=== PATIENT | female | born 1945 | race Caucasian/White ===

== ENCOUNTER 2017-01-04 04:17 | Emergency (ER) | payer MEDICARE ==
[2017-01-04] MEDS ORDERED: Adacel (T-DAP) 0.5 ML VIAL ONE (04:38)
[2017-01-04] MEDS ORDERED: Ondansetron ODT 4 MG TAB ONE (05:07)
--- NOTE | 2017-01-04 08:08 | CT ---
PRELIMINARY REPORT/[facility]/EMERGENCY AFTER HOURS PROCEDURE: EXAM: CT Head Without Intravenous Contrast CLINICAL HISTORY: 71 years old, female; Injury or trauma; Fall; Initial encounter; Bleeding / hemorrhage; Injury date: 01/04/17; Injury details: Patient fell when attempting to pull out a rolling chair. Patient denies loc. Minor lac to left roman catholic. Pt says she hit the corner of a marble top night stand. ; Patient HX: Blee ding from left occipital ridge TECHNIQUE: Axial computed tomography images of the head/brain without intravenous contrast. This CT exam was pe rformed using one or more of the following dose reduction techniques: automated exposure control, ad justment of the mA and/or kV according to patient size, and/or use of iterative reconstruction techn ique. Coronal and sagittal reformatted images were created and reviewed. COMPARISON: No relevant prior studies available. FINDINGS: Diffuse cerebral volume loss. Chronic small vessel disease. No intracranial hemorrhage. No mass, mass effect or midline shift. No hydrocephalus or extra-axial fluid collections. Ventricles, cortical sulci and basal cisterns are appropriate for age without effacement. Pepper-white matter differentiation is preserved. No dense MCA sign. Orbits are unremarkable. Paranasal sinuses are clear. Mastoid air cells are clear. No acute fracture. Extra calvarial soft tissues unremarkable. IMPRESSION: No acute intracranial abnormality. Thank you for allowing us to participate in the care of your patient. Dictated and Authenticated by: Vadim Herrera MD 01/04/2017 5:56 AM Central Time ([place] \T\ Rob) FINAL REPORT CT BRAIN WITHOUT CONTRAST: I agree with the preliminary report given by Dr. Vadim Herrera of [facility]. POS: [facility]
--- NOTE | 2017-01-04 08:09 | CT ---
PRELIMINARY REPORT/[facility]/EMERGENCY AFTER HOURS PROCEDURE: EXAM: CT Cervical Spine Without Intravenous Contrast CLINICAL HISTORY: 71 years old, female; Injury or trauma; Fall; Initial encounter; Blunt trauma; Injury date: 01/04/17 ; Patient HX: Patient fell when attempting to pull out a rolling chair. Patient denies loc. Pt hit t he back of her head on a marble top nightstand. Pt complains of neck pain. TECHNIQUE: Axial computed tomography images of the cervical spine without intravenous contrast. This CT exam wa s performed using one or more of the following dose reduction techniques: automated exposure control , adjustment of the mA and/or kV according to patient size, and/or use of iterative reconstruction t [facility]. Coronal and sagittal reformatted images were created and reviewed. COMPARISON: No relevant prior studies available. FINDINGS: Vertebrae: No acute fracture. Multilevel degenerative changes consisting of disk space height loss, endplate sclerosis and osteophytosis, uncovertebral hypertrophy and facet arthrosis. Discs/spinal canal/neural foramina: No high grade spinal canal stenosis. Soft tissues: Unremarkable. Lung apices: Unremarkable. IMPRESSION: No acute osseous abnormality. Thank you for allowing us to participate in the care of your patient. Dictated and Authenticated by: Vadim Herrera MD 01/04/2017 6:05 AM Central Time ([place] \T\ Rob) FINAL REPORT CT CERVICAL SPINE WITH CORONAL AND SAGITTAL REFORMATIONS: I agree with the preliminary report given by Dr. Vadim Herrera of [employer]. POS: [facility]
== END 2017-01-04 06:55 | disposition home or self-care (01) ==
LOC: NAV ERS 04:17
DX: S01.01XA Laceration without foreign body of scalp, initial encounter (principal); S13.4XXA Sprain of ligaments of cervical spine, initial encounter; M06.9 Rheumatoid arthritis, unspecified; I10 Essential (primary) hypertension; F32.9 Major depressive disorder, single episode, unspecified; W01.0XXA Fall on same level from slipping, tripping and stumbling without subsequent striking against object, initial encounter; Z79.899 Other long term (current) drug therapy; Y93.89 Activity, other specified; Z23 Encounter for immunization
CPT/HCPCS: 70450; 72125; 90471; 90715; Q0162

== ENCOUNTER 2017-01-29 10:45 | Emergency (ER) | payer MEDICARE ==
[2017-01-29] MEDS ORDERED: Sodium Chloride 0.9% 1,000 ML ONE (11:07)
== END 2017-01-29 12:30 | disposition home or self-care (01) ==
LOC: NAV ERS 10:45
DX: I95.2 Hypotension due to drugs (principal); T46.4X5A Adverse effect of angiotensin-converting-enzyme inhibitors, initial encounter; I10 Essential (primary) hypertension; F32.9 Major depressive disorder, single episode, unspecified; Z79.899 Other long term (current) drug therapy
CPT/HCPCS: 96360; J7050

== ENCOUNTER 2017-06-17 13:09 | Inpatient (IN) | payer MEDICARE ==
[2017-06-17] MEDS ORDERED: diphenhydrAMINE 25 MG CAP PO PRN (13:27)
[2017-06-17] MEDS ORDERED: Sodium Chloride 0.9% 10 ML ONE (13:38)
--- NOTE | 2017-06-17 13:48 | HP ---
DATE OF ADMISSION: 06/17/2017 CHIEF COMPLAINT: Status post knee replacement for physical therapy. BRIEF HISTORY: This is a very pleasant 71-year-old female who underwent elective right tot al knee replacement. She has done well and was deemed stable for therapy at [facility] and was transf erred here. Her main concern right now is pain. She denies any fever or chills. She denies any rigo st pain or shortness of breath. PAST MEDICAL HISTORY: 1. Hypertension. 2. Gastroesophageal reflux disease. 3. Degenerative joint disease. 4. Dyslipidemia. 5. Peripheral neuropathy. 6. Rheumatoid arthritis. ALLERGIES: To PENICILLIN. PAST SURGICAL HISTORY: Recent right total knee replacement. FAMILY HISTORY: Noncontributory to current admission. PSYCHOSOCIAL HISTORY: No documented tobacco, alcohol or IV drug abuse. REVIEW OF SYSTEMS: Cardiovascular: Denies any chest pain, shortness of breath, palpitations, paroxy smal nocturnal dyspnea, orthopnea, pedal edema. Respiratory: Denies any chronic cough, expectoratio n or pleuritic type chest pain. Gastrointestinal: Denies any nausea, vomiting, diarrhea, constipatio n, hematemesis, melena, hematochezia. She does have history of acid reflux. Genitourinary: Denies any frequency, urgency, dysuria or hematuria. Central nervous system: No focal numbness, weakness, or fainting spells, but does have generalized weakness. SHEENT: No difficulty with speech, vision, hearing or swallowing. PHYSICAL EXAMINATION: GENERAL: Very pleasant 71-year-old female who is in pain. Denies any other complaint. Delicia yates is alert, awake, and oriented x3. VITAL SIGNS: She is afebrile. Heart rate was 106, respiratory rate was 18, blood pressure was 175/8 5, but this was after she arrived here with no pain medicines. This morning, it was 138/78. HEENT: Normocephalic, atraumatic. Pupils equal and reactive to light and accommodation. Extraocula r muscles intact. NECK: No JVD, thyromegaly, cervical adenopathy, throat exudates or carotid bruits. CARDIOVASCULAR: S1, S2 plus, rate and rhythm regular. RESPIRATORY: Normal vesicular breath sounds heard in all lung leon. ABDOMEN: Soft, nontender, bowel sounds heard in all quadrants. EXTREMITIES: Without cyanosis or clubbing. Right knee incision with dressing. CENTRAL NERVOUS SYSTEM: Grossly nonfocal. LABORATORY VALUES: Pending. IMPRESSION: 1. Status post right total knee replacement. 2. Rheumatoid arthritis. 3. Hypertension. 4. Gastroesophageal reflux disease. 5. Peripheral neuropathy. PLAN: 1. Continue current medications. 2. Nutritional support. 3. Pain control. 4. Low sodium diet. 5. Deep venous thrombosis and stress ulcer prophylaxis. 6. Decubitus precautions. 7. Routine laboratory values. 8. Physical therapy. 9. Discussed with patient in detail and all questions answered.
[2017-06-17] MEDS: HYDROcodone/Acetaminophen 10/325 mg Tablet PO PRN ×2 (14:39→20:10)
[2017-06-17] MEDS: Gabapentin 300 MG CAP PO SCH ×2 (14:39→20:07)
[2017-06-17] MEDS: Simvastatin 10 MG TAB PO SCH (20:08)
[2017-06-17] MEDS: Cyclobenzaprine 10 MG TAB PO SCH (20:08)
[2017-06-17] MEDS: Naproxen 500 MG TAB PO PRN (20:08)
[2017-06-17] MEDS: Enoxaparin Sodium 40 MG/0.4 ML SYRINGE SC SCH (20:09)
[2017-06-17] MEDS: diphenhydrAMINE 25 MG CAP PO SCH (20:09)
[2017-06-18] MEDS: HYDROcodone/Acetaminophen 10/325 mg Tablet PO PRN ×5 (01:50→21:51)
[2017-06-18 06:03] LABS: #Basophils 0.1 thou/uL (0.0-0.2); #Eosinphils 0.5 thou/uL (0.0-0.7); #Lymphocytes 1.9 thou/uL (1.20-3.40); #Monocytes 0.8 thou/uL (0.11-0.59); #Neutrophils 3.7 thou/uL (1.40-6.50); %Basophils 1.3 % (0.0-1.0); %Eosinophils 6.7 % (0.0-10.0); %Lymphocytes 27.1 % (21.0-51.0); %Monocytes 11.7 % (0.0-10.0); %Neutrophils 53.1 % (42.0-75.0); Hemoglobin 10.1 g/dL (12.0-16.0); Mean Corpuscular HGB CONC 31.3 g/dL (32.0-36.0); Mean Corpuscular Volume 92.7 fl (81.0-99.0); Mean Platelet Volume 5.5 fL (7.4-10.4); Platelet Count 167 thou/uL (130-400); RBC Distribution Width 12.2 % (11.5-14.5); Red Blood Cell (RBC) Count 3.47 mill/uL (4.20-5.40)
[2017-06-18 06:17] LABS: Anion Gap 10 mmol/L (10-20); BUN (Urea Nitrogen) 9 mg/dL (9.8-20.1); Calc. Creatinine Clearance 129 mL/min (70-130); Carbon Dioxide 30 mmol/L (23-31); Chloride 104 mmol/L (98-107); Estimated GFR-MDRD 90; Potassium 3.9 mmol/L (3.5-5.1); Sodium 140 mmol/L (136-145)
[2017-06-18 06:18] LABS: Calcium 8.7 mg/dL (7.8-10.44); Glucose 108 mg/dL (83-110)
[2017-06-18] MEDS: Stress 600 With Zinc 1 TAB PO SCH (08:06)
[2017-06-18] MEDS: Vitami E (Dl,Tocopheryl Acet) 400 UNITS CAP PO SCH (08:06)
[2017-06-18] MEDS: Gabapentin 300 MG CAP PO SCH ×3 (08:07→21:52)
[2017-06-18] MEDS: Fish Oil 1,000 MG CAP PO SCH (08:07)
[2017-06-18] MEDS: Ubidecarenone 50 MG CAP PO SCH (08:07)
[2017-06-18] MEDS: Folic Acid 1 MG TAB PO SCH (08:07)
[2017-06-18] MEDS: Multivitamin W/ Minerals 1 TAB PO SCH (08:07)
[2017-06-18] MEDS: GARLIC 1000 MG PO SCH (10:56)
--- NOTE | 2017-06-18 12:58 | PRG ---
DATE OF SERVICE: 06/18/2017 SUBJECTIVE: Ms. Lujan is doing better, but feels like the [place] 10/325 is not lasting for 6 hours. She would like to have it every 4 hours at least for the first couple of days. No other concerns or questions. OBJECTIVE: VITAL SIGNS: She is afebrile, heart rate is 89, respirations 18, oxygen saturation 94%, blood pressu re is 135/77. CARDIOVASCULAR: S1, S2 plus. RESPIRATORY: Normal vesicular breath sounds. ABDOMEN: Soft, nontender, bowel sounds heard in all quadrants. EXTREMITIES: Without cyanosis or clubbing. Knee incision with dressing. LABORATORY VALUES: White count is 7.0, H&H is 10.1 and 32.1. Sodium 140, potassium 3.9, BUN and cre atinine is 9 and 0.65. IMPRESSION: 1. Status post knee replacement. 2. Hypertension, well controlled. 3. Gastroesophageal reflux disease. 4. Degenerative joint disease. 5. Dyslipidemia. 6. Peripheral neuropathy. 7. Rheumatoid arthritis. Her hypertension, it is managed by lifestyle and diet and the patient states that it really only flar es up when she is in pain. Usually it is very well controlled. PLAN: 1. Continue current medications. 2. Change [place] to q.4 hours. 3. DVT and stress ulcer prophylaxis. 4. Decubitus precautions. 5. Incision care. 6. Physical therapy. 7. Heart healthy diet.
[2017-06-18] MEDS: Naproxen 500 MG TAB PO PRN (15:04)
[2017-06-18] MEDS: diphenhydrAMINE 25 MG CAP PO SCH (21:52)
[2017-06-18] MEDS: Enoxaparin Sodium 40 MG/0.4 ML SYRINGE SC SCH (21:53)
[2017-06-18] MEDS: Simvastatin 10 MG TAB PO SCH (21:53)
[2017-06-18] MEDS: Cyclobenzaprine 10 MG TAB PO SCH (21:53)
[2017-06-18] MEDS ORDERED: Docusate 100 MG CAP PO SCH (22:15)
[2017-06-19] MEDS: HYDROcodone/Acetaminophen 10/325 mg Tablet PO PRN ×5 (02:45→19:33)
--- NOTE | 2017-06-19 09:21 | PRG ---
DATE OF SERVICE: 06/19/2017 SUBJECTIVE: Ms. Lujan is doing well. She is ambulating in the hallways with the help of a walker an d therapy. She states the pain is well controlled with hydrocodone every 4. She has been having jaky e issues with constipation and was started on a stool softener. She denies any other concerns or que stions. OBJECTIVE: VITAL SIGNS: She is afebrile, heart rate is 90, respirations 18, oxygen saturation is 91% on room ai r, blood pressure 134/60. CARDIOVASCULAR SYSTEM: S1, S2 plus. RESPIRATORY SYSTEM: Normal vesicular breath sounds. ABDOMEN: Soft, obese, nontender, bowel sounds heard in all quadrants. EXTREMITIES: Without cyanosis or clubbing. Trace edema, right leg. IMPRESSION: 1. Status post right total knee replacement. 2. Hypertension, well controlled. 3. Dyslipidemia. 4. Rheumatoid arthritis. 5. Degenerative joint disease. 6. Gastroesophageal reflux disease. PLAN: 1. Continue current medications. 2. Bowel regimen and stool softener. 3. Continue pain medications q.4. 4. Heart healthy diet. 5. DVT and stress ulcer prophylaxis. 6. Decubitus precautions. 7. Physical therapy.
[2017-06-19] MEDS: Docusate 100 MG CAP PO SCH ×2 (09:48→20:38)
[2017-06-19] MEDS: Stress 600 With Zinc 1 TAB PO SCH (09:48)
[2017-06-19] MEDS: Multivitamin W/ Minerals 1 TAB PO SCH (09:48)
[2017-06-19] MEDS: Ubidecarenone 50 MG CAP PO SCH (09:48)
[2017-06-19] MEDS: Gabapentin 300 MG CAP PO SCH ×3 (09:49→20:37)
[2017-06-19] MEDS: Fish Oil 1,000 MG CAP PO SCH (09:49)
[2017-06-19] MEDS: GARLIC 1000 MG PO SCH (09:50)
[2017-06-19] MEDS: Vitami E (Dl,Tocopheryl Acet) 400 UNITS CAP PO SCH (09:50)
[2017-06-19] MEDS: Folic Acid 1 MG TAB PO SCH (09:50)
[2017-06-19 13:49] VITALS: BMI 38.2
[2017-06-19] MEDS: diphenhydrAMINE 25 MG CAP PO SCH (20:37)
[2017-06-19] MEDS: Simvastatin 10 MG TAB PO SCH (20:37)
[2017-06-19] MEDS: Enoxaparin Sodium 40 MG/0.4 ML SYRINGE SC SCH (20:37)
[2017-06-19] MEDS: Cyclobenzaprine 10 MG TAB PO SCH (20:38)
[2017-06-20] MEDS: HYDROcodone/Acetaminophen 10/325 mg Tablet PO PRN ×6 (01:37→22:07)
[2017-06-20] MEDS: Ubidecarenone 50 MG CAP PO SCH (09:09)
[2017-06-20] MEDS: Gabapentin 300 MG CAP PO SCH ×3 (09:09→21:58)
[2017-06-20] MEDS: Naproxen 500 MG TAB PO PRN (09:09)
[2017-06-20] MEDS: Vitami E (Dl,Tocopheryl Acet) 400 UNITS CAP PO SCH (09:10)
[2017-06-20] MEDS: Folic Acid 1 MG TAB PO SCH (09:11)
[2017-06-20] MEDS: Fish Oil 1,000 MG CAP PO SCH (09:11)
[2017-06-20] MEDS: Docusate 100 MG CAP PO SCH ×2 (09:11→21:58)
[2017-06-20] MEDS: Stress 600 With Zinc 1 TAB PO SCH (09:11)
[2017-06-20] MEDS: Multivitamin W/ Minerals 1 TAB PO SCH (09:11)
[2017-06-20] MEDS: GARLIC 1000 MG PO SCH (09:12)
[2017-06-20] MEDS: Simvastatin 10 MG TAB PO SCH (21:58)
[2017-06-20] MEDS: Cyclobenzaprine 10 MG TAB PO SCH (21:58)
[2017-06-20] MEDS: diphenhydrAMINE 25 MG CAP PO SCH (21:58)
[2017-06-20] MEDS: Enoxaparin Sodium 40 MG/0.4 ML SYRINGE SC SCH (22:01)
--- NOTE | 2017-06-20 23:35 | PRG ---
DATE OF SERVICE: 06/20/2017 SUBJECTIVE: The patient feels well, cooperating well with therapy, walking in the stubbs, with adequat e pain relief. OBJECTIVE: Shows blood pressure 174/73, O2 sats 95%, respirations 22, pulse 104, afebrile. Laborato ry shows white count 7000, creatinine 0.65. Culture of the knee incision shows no organisms, no grow th. ASSESSMENT: Showed, 1. Resolving right total knee replacement. 2. Uncontrolled hypertension. 3. Rheumatoid arthritis. 4. Gastroesophageal reflux. PLAN: 1. Continue to monitor blood pressure. May need to increase medications for this tomorrow. 2. Continue pain relief and therapy. 3. Continue to stress ulcer and DVT prophylaxis.
[2017-06-21] MEDS: HYDROcodone/Acetaminophen 10/325 mg Tablet PO PRN ×6 (02:26→23:42)
[2017-06-21] MEDS: Stress 600 With Zinc 1 TAB PO SCH (08:55)
[2017-06-21] MEDS: Vitami E (Dl,Tocopheryl Acet) 400 UNITS CAP PO SCH (08:56)
[2017-06-21] MEDS: Naproxen 500 MG TAB PO PRN (08:56)
[2017-06-21] MEDS: Multivitamin W/ Minerals 1 TAB PO SCH (08:57)
[2017-06-21] MEDS: Ubidecarenone 50 MG CAP PO SCH (08:57)
[2017-06-21] MEDS: Docusate 100 MG CAP PO SCH ×2 (08:57→21:26)
[2017-06-21] MEDS: Gabapentin 300 MG CAP PO SCH ×3 (08:57→21:26)
[2017-06-21] MEDS: Folic Acid 1 MG TAB PO SCH (08:57)
[2017-06-21] MEDS: Fish Oil 1,000 MG CAP PO SCH (08:57)
[2017-06-21] MEDS: GARLIC 1000 MG PO SCH (08:58)
--- NOTE | 2017-06-21 20:14 | PRG ---
DATE OF SERVICE: 06/21/2017 SUBJECTIVE: The patient lying in bed, resting well. States she is feeling much better, decreasing k nee pain, has been walking in the halls. No headache, dizziness, shortness of breath. OBJECTIVE: VITAL SIGNS: Showed blood pressure is improved to 159/79, temperature is 98, pulse 90, O2 sat 93% on room air. LUNGS: Clear. CARDIAC EXAMINATION: Shows regular rhythm. EXTREMITIES: Right knee appears to be healing well. ASSESSMENT: Resolving right knee replacements, stable. Hypertension, improved to goal, stable. Deg enerative joint disease and rheumatoid arthritis. PLAN: Continue PT, OT. Continue pain medication. Continue DVT and stress ulcer prophylaxis.
[2017-06-21] MEDS: diphenhydrAMINE 25 MG CAP PO SCH (21:26)
[2017-06-21] MEDS: Enoxaparin Sodium 40 MG/0.4 ML SYRINGE SC SCH (21:27)
[2017-06-21] MEDS: Simvastatin 10 MG TAB PO SCH (21:27)
[2017-06-21] MEDS: Cyclobenzaprine 10 MG TAB PO SCH (21:28)
[2017-06-22] MEDS: HYDROcodone/Acetaminophen 10/325 mg Tablet PO PRN ×5 (03:47→21:05)
[2017-06-22] MEDS: Fish Oil 1,000 MG CAP PO SCH (07:53)
[2017-06-22] MEDS: Folic Acid 1 MG TAB PO SCH (07:56)
[2017-06-22] MEDS: Ubidecarenone 50 MG CAP PO SCH (07:56)
[2017-06-22] MEDS: Docusate 100 MG CAP PO SCH ×2 (07:56→21:04)
[2017-06-22] MEDS: Gabapentin 300 MG CAP PO SCH ×3 (07:56→21:04)
[2017-06-22] MEDS: Multivitamin W/ Minerals 1 TAB PO SCH (07:56)
[2017-06-22] MEDS: Stress 600 With Zinc 1 TAB PO SCH (07:56)
[2017-06-22] MEDS: GARLIC 1000 MG PO SCH (07:58)
[2017-06-22] MEDS ORDERED: Vitami E (Dl,Tocopheryl Acet) 400 UNITS CAP PO SCH (10:45)
[2017-06-22] MEDS: Vitami E (Dl,Tocopheryl Acet) 400 UNITS CAP PO SCH (10:48)
[2017-06-22] MEDS ORDERED: Magnesium Citrate 300 ML BOT PO SCH (13:00)
--- NOTE | 2017-06-22 18:02 | PRG ---
DATE OF SERVICE: 06/22/2017 SUBJECTIVE: Ms. Lujan is doing well except for constipation. She is tolerating therapy. She has be en deemed stable to go home tomorrow. She wants to take some mag citrate prior to going home. She a lso needs a prescription for hydrocodone which I will give her tomorrow. OBJECTIVE: VITAL SIGNS: She is afebrile, heart rate is 86, respirations 18, oxygen saturation 96%, blood pressu re is 169/73. CARDIOVASCULAR: S1, S2 plus. RESPIRATORY: Normal vesicular breath sounds. ABDOMEN: Soft, nontender, bowel sounds heard in all quadrants. EXTREMITIES: Without cyanosis or clubbing. Knee incision with dressing. IMPRESSION: 1. Constipation. 2. Gastroesophageal reflux disease. 3. Degenerative joint disease. 4. Dyslipidemia. 5. Peripheral neuropathy. PLAN: 1. Continue current medications. 2. Mag citrate. 3. High fiber diet. 4. DVT and stress ulcer prophylaxis. 5. Decubitus precautions. 6. Physical therapy. 7. Discharge planning.
[2017-06-22] MEDS: Cyclobenzaprine 10 MG TAB PO SCH (21:04)
[2017-06-22] MEDS: Simvastatin 10 MG TAB PO SCH (21:04)
[2017-06-22] MEDS: diphenhydrAMINE 25 MG CAP PO SCH (21:04)
[2017-06-22] MEDS: Enoxaparin Sodium 40 MG/0.4 ML SYRINGE SC SCH (21:05)
[2017-06-23] MEDS: HYDROcodone/Acetaminophen 10/325 mg Tablet PO PRN ×3 (01:11→10:12)
[2017-06-23] MEDS: Multivitamin W/ Minerals 1 TAB PO SCH (09:24)
[2017-06-23] MEDS: Ubidecarenone 50 MG CAP PO SCH (09:24)
[2017-06-23] MEDS: Fish Oil 1,000 MG CAP PO SCH (09:24)
[2017-06-23] MEDS: Folic Acid 1 MG TAB PO SCH (09:25)
[2017-06-23] MEDS: Docusate 100 MG CAP PO SCH (09:25)
[2017-06-23] MEDS: Stress 600 With Zinc 1 TAB PO SCH (09:25)
[2017-06-23] MEDS: Gabapentin 300 MG CAP PO SCH (09:25)
[2017-06-23] MEDS: Vitami E (Dl,Tocopheryl Acet) 400 UNITS CAP PO SCH (09:26)
[2017-06-23 10:27] VITALS: TEMP 97.9
[2017-06-23 12:05] VITALS: BP 150/66
--- NOTE | 2017-06-24 01:06 | DIS ---
DATE OF ADMISSION: 06/17/2017 DATE OF DISCHARGE: 06/23/2017 PRINCIPAL DIAGNOSES: 1. Right total knee replacement. 2. Gastroesophageal reflux disease. 3. Degenerative joint disease. 4. Dyslipidemia. 5. Peripheral neuropathy. 6. History of rheumatoid arthritis. COMPLICATIONS: None. ADVERSE REACTIONS: None. PROCEDURES: None. CONSULTATIONS: None. HOSPITAL COURSE: The patient was admitted as a transfer from [facility] for physical therap y after undergoing a right total knee replacement. She has done well and ambulating in the hallways and was deemed stable from therapy standpoint for discharge. She did have an episode of constipation , which resolved with magnesium citrate. She initially needed hydrocodone every 4 hours, but now she is taking it every 6 hours as needed, advised her to try to cut it down. She does have a followup a ppointment with her orthopedic surgeon on 06/30/2017. PHYSICAL EXAMINATION: VITAL SIGNS: On the day of discharge, she is afebrile, heart rate 88, respirations 20, oxygen satura tion 94% on room air, blood pressure is 150/66. CARDIOVASCULAR SYSTEM: S1, S2 plus. RESPIRATORY SYSTEM: Normal vesicular breath sounds. ABDOMEN: Soft, nontender, bowel sounds heard in all quadrants. EXTREMITIES: Without cyanosis or clubbing. Right knee incision with dressing. Trace edema. CENTRAL NERVOUS SYSTEM: Grossly nonfocal. DISCHARGE MEDICATIONS: 1. [place] 10/325 one q.6 hours p.r.n. 2. Flexeril 10 mg at night. 3. Vitamin D3 and CoQ10 as before. 4. Neurontin 600 mg t.i.d. 5. Protonix 40 mg daily. 6. Pravastatin 20 mg daily. 7. Fish oil 1000 mg daily. 8. Naproxen 440 mg b.i.d. p.r.n. DISCHARGE INSTRUCTIONS: She is to follow up with her primary care physician, Dr. Christianson. Heart heal thy diet. Incision care. Activity as tolerated. She is to call us with any questions or concerns. Discussed with patient in detail and all questions answered. I have sent in one week's supply of No r[place] 10/325, #28, [facility] from my office. Total time spent on this discharge is 35 minutes.
== END 2017-06-23 13:40 | disposition home or self-care (01) | DRG 561 ==
LOC: NAV ACUTE 13:09
PROVIDERS: ADMIT Internal Medicine; ATTEND Internal Medicine
DX: Z47.1 Aftercare following joint replacement surgery (principal); M05.50 Rheumatoid polyneuropathy with rheumatoid arthritis of unspecified site; I10 Essential (primary) hypertension; M19.90 Unspecified osteoarthritis, unspecified site; E78.5 Hyperlipidemia, unspecified; K21.9 Gastro-esophageal reflux disease without esophagitis; Z88.0 Allergy status to penicillin; Z96.651 Presence of right artificial knee joint; K59.00 Constipation, unspecified
CPT/HCPCS: 80048; 85025; 87070; 87205; A4216; J1650; J2270

== ENCOUNTER 2018-01-14 13:47 | Inpatient (IN) | payer MEDICARE ==
[2018-01-14] MEDS ORDERED: HYDROcodone/Acetaminophen 10/325 mg Tablet PO PRN ×2 (16:40)
[2018-01-14] MEDS ORDERED: Cyclobenzaprine 10 MG TAB PO SCH (16:45)
[2018-01-14] MEDS ORDERED: HYDROcodone/Acetaminophen 10/325 mg Tablet PO SCH (17:00)
[2018-01-14] MEDS: Gabapentin 300 MG CAP PO SCH (20:53)
[2018-01-14] MEDS: Aspirin 81 mg Enteric Coated Tablet PO SCH (20:53)
[2018-01-14] MEDS: Cyclobenzaprine 10 MG TAB PO SCH (20:53)
[2018-01-14] MEDS: Melatonin 3 MG TAB PO SCH (20:53)
[2018-01-14] MEDS: traZODone HCl 50 MG TAB PO SCH (20:53)
[2018-01-14] MEDS: Stress 600 With Zinc 1 TAB PO SCH (20:54)
[2018-01-14] MEDS: HYDROcodone/Acetaminophen 10/325 mg Tablet PO PRN (21:06)
--- NOTE | 2018-01-15 00:26 | HP ---
CHIEF COMPLAINT: Status post left total knee replacement for physical therapy. BRIEF HISTORY: This is a very pleasant overweight 72-year-old female who underwent left to adria knee replacement by Dr. Jay. She had an uneventful postoperative period and was felt to be a c andidate for inpatient rehabilitation and transferred her to halfway unit in [place]. Her m ain concern is her pain medications. She apparently was taking it every 4 hours there and on the dis charge summary, it stays every 8 hours. I advised her that I will change it to every 4 hours and we will just see how she does and taper it as she improves, she is pretty satisfied with that. She kianna es any other concerns or questions. She is having good bowel movements. PAST MEDICAL HISTORY: 1. Hypertension. 2. Gastroesophageal reflux disease. 3. Degenerative joint disease. 4. Dyslipidemia. 5. Peripheral neuropathy. 6. Rheumatoid arthritis. ALLERGIES: PENICILLIN. PAST SURGICAL HISTORY: Right total knee replacement. FAMILY HISTORY: Noncontributory to current admission. PSYCHOSOCIAL HISTORY: No documented tobacco, alcohol, or IV drug abuse. REVIEW OF SYSTEMS: Cardiovascular: She denies any chest pain, shortness of breath, palpitations, PN D, orthopnea, or pedal edema. Respiratory: Denies any chronic cough, expectoration or pleuritic-typ e chest pain. Gastrointestinal: Denies any nausea, vomiting, diarrhea, constipation, hematemesis, m patrick, or hematochezia. Genitourinary: Denies any frequency, urgency, dysuria, or hematuria. Centr al Nervous System: Generalized weakness. Extremities: Left knee pain. HEENT: No difficulty with speech, vision, hearing or swallowing. PHYSICAL EXAMINATION: GENERAL: A very pleasant 72-year-old overweight female who is resting comfortably in no ap parent distress. No family at bedside. She responds appropriately to questions. She is alert, awak e, and oriented x3. VITAL SIGNS: She is afebrile, heart rate 94, respirations 16, oxygen saturation is 92% on 2.5 liters of nasal cannula, blood pressure 137/81. HEENT: Normocephalic, atraumatic. Pupils equally reacting to light and accommodation. NECK: No JVD, thyromegaly, cervical adenopathy, or carotid bruits. CARDIOVASCULAR: S1, S2 plus rate and rhythm regular. RESPIRATORY: Normal vesicular breath sounds heard in all lung leon. ABDOMEN: Soft, obese, nontender, bowel sounds heard in all quadrants. EXTREMITIES: Without cyanosis or clubbing. Edema to left leg, left knee incision with dressing. Th ere is some warmth to the left knee, but no erythema. CENTRAL NERVOUS SYSTEM: Grossly nonfocal except for generalized weakness. LABORATORY VALUES: Done yesterday shows a white count of 9, H and H is 9.3 and 27.6. Sodium 134, po tassium 3.9, BUN and creatinine is 13 and 0.81. IMPRESSION: 1. Degenerative joint disease, status post left total knee replacement. 2. Hypertension. 3. Dyslipidemia. 4. Peripheral neuropathy. 5. History of rheumatoid arthritis. 6. Gastroesophageal reflux disease. 7. Anemia, likely due to acute blood loss. 8. Hyponatremia. PLAN: 1. Continue current medications. 2. Physical therapy and occupational therapy evaluate and treat. 3. DVT prophylaxis with PlexiPulse. She is a Worship. We will avoid Lovenox. 4. Stress ulcer prophylaxis. She is already on proton pump inhibitor. 5. Decubitus precautions. 6. Incision care. 7. Orthopedic precautions. 8. Heart-healthy diet. 9. Change pain medications back to her q.4 hours scheduled. 10. Recheck CBC and BMP in the morning. 11. Discussed with patient and nursing in detail and all questions answered. 12. She is already on a bowel regimen. 13. Anticipated length of stay 7-10 days.
[2018-01-15] MEDS: HYDROcodone/Acetaminophen 10/325 mg Tablet PO PRN ×5 (01:13→18:01)
[2018-01-15 05:38] LABS: Anion Gap 10 mmol/L (10-20); BUN (Urea Nitrogen) 9 mg/dL (9.8-20.1); Calc. Creatinine Clearance 131 mL/min (70-130); Calcium 8.7 mg/dL (7.8-10.44); Carbon Dioxide 31 mmol/L (23-31); Chloride 101 mmol/L (98-107); Estimated GFR-MDRD 89; Glucose 100 mg/dL (83-110); Sodium 138 mmol/L (136-145)
[2018-01-15 05:51] LABS: #Basophils 0.1 thou/uL (0.0-0.2); #Eosinphils 1.4 thou/uL (0.0-0.7); #Lymphocytes 1.7 thou/uL (1.20-3.40); #Monocytes 0.7 thou/uL (0.11-0.59); #Neutrophils 4.8 thou/uL (1.40-6.50); %Basophils 1.1 % (0.0-1.0); %Eosinophils 16.3 % (0.0-10.0); %Lymphocytes 19.8 % (21.0-51.0); %Monocytes 7.7 % (0.0-10.0); %Neutrophils 55.1 % (42.0-75.0); Hemoglobin 9.2 g/dL (12.0-16.0); Mean Corpuscular Hemoglobin 28.3 pg (27.0-31.0); Mean Corpuscular Volume 88.5 fl (81.0-99.0); Mean Platelet Volume 5.4 fL (7.4-10.4); Platelet Count 194 thou/uL (130-400); RBC Distribution Width 12.6 % (11.5-14.5); Red Blood Cell (RBC) Count 3.24 mill/uL (4.20-5.40); White Blood Cell (WBC) Count 8.6 thou/uL (4.8-10.8)
[2018-01-15] MEDS: Escitalopram Oxalate 10 mg Tablet PO SCH (08:21)
[2018-01-15] MEDS: Gabapentin 300 MG CAP PO SCH ×3 (08:21→21:08)
[2018-01-15] MEDS: Folic Acid 1 MG TAB PO SCH (08:21)
[2018-01-15] MEDS: Multivitamin W/ Minerals 1 TAB PO SCH (08:21)
[2018-01-15] MEDS: Cyclobenzaprine 10 MG TAB PO SCH ×3 (08:21→21:08)
[2018-01-15] MEDS: Aspirin 81 mg Enteric Coated Tablet PO SCH ×2 (08:21→21:08)
[2018-01-15] MEDS: Fish Oil 1,000 MG CAP PO SCH (08:21)
[2018-01-15] MEDS: Pravastatin Sodium 20 MG TAB PO SCH (08:22)
[2018-01-15] MEDS: IRON CARB PO SCH (08:24)
[2018-01-15] MEDS: GARLIC 1000 MG PO SCH (08:24)
[2018-01-15] MEDS: FOLIC PO SCH (08:24)
[2018-01-15] MEDS: VIT C PO SCH (08:24)
[2018-01-15] MEDS: VIT B12 PO SCH (08:24)
--- NOTE | 2018-01-15 09:43 | PRG ---
DATE OF SERVICE: 01/15/2018 SUBJECTIVE: Ms. Lujan is doing well. She apparently tried to walk by herself using a walker. Did n ot fall. Reinforced the need for her to call for assistance. She did sleep. Pain is controlled. S he apparently was recently given a prescription for thyroid medication. She is not sure what the dos age is. I advised her to bring it in and we will review it. OBJECTIVE: VITAL SIGNS: She is afebrile, heart rate is 89, respirations 18, oxygen saturation 95% on room air, blood pressure 134/63. HEENT: Normocephalic, atraumatic. CARDIOVASCULAR SYSTEM: S1 and S2 plus. RESPIRATORY SYSTEM: Normal vesicular breath sounds. ABDOMEN: Soft, obese, nontender. Bowel sounds heard in all quadrants. EXTREMITIES: Without cyanosis or clubbing. Left leg with edema. Left knee incision with dressing. No erythema, but there is warmth and swelling. LABORATORY VALUES: H and H is 9.2 and 28.6. Sodium 138, potassium 4.0, BUN and creatinine is 9 and 0.65. IMPRESSION: 1. Degenerative joint disease, status post left total knee replacement. 2. Peripheral neuropathy. 3. Hypertension. 4. Dyslipidemia. 5. Gastroesophageal reflux disease. 6. History of rheumatoid arthritis. PLAN: 1. Continue current medications. 2. Incision care. 3. Deep venous thrombosis prophylaxis with PlexiPulses. 4. Decubitus precautions. 5. Stress ulcer prophylaxis. 6. Continue PT/OT evaluation and treatment. 7. She is to call us with any questions or concerns. 8. Nutritional support. 9. Discussed with patient in detail. All questions answered. 10. We will check old records to get the results on her thyroid laboratory values and see if she ronal lly needs to be on thyroid medication. Her TSH was borderline at 5.6396. I do not see any T3 or T4.
[2018-01-15] MEDS: Ubidecarenone 50 MG CAP PO SCH (09:44)
[2018-01-15] MEDS: Vitami E (Dl,Tocopheryl Acet) 400 UNITS CAP PO SCH (09:44)
[2018-01-15 18:40] LABS: Free T4 (Free Thyroxine) 1.1 ng/dL (0.70-1.48)
[2018-01-15] MEDS: traZODone HCl 50 MG TAB PO SCH (21:08)
[2018-01-15] MEDS: Melatonin 3 MG TAB PO SCH (21:08)
[2018-01-15] MEDS: Stress 600 With Zinc 1 TAB PO SCH (21:08)
[2018-01-16] MEDS: HYDROcodone/Acetaminophen 10/325 mg Tablet PO PRN ×6 (00:21→23:59)
[2018-01-16] MEDS: Levothyroxine Sodium 25 MCG TAB PO SCH (05:02)
[2018-01-16] MEDS: Folic Acid 1 MG TAB PO SCH (08:46)
[2018-01-16] MEDS: Cyclobenzaprine 10 MG TAB PO SCH ×3 (08:47→20:04)
[2018-01-16] MEDS: Vitami E (Dl,Tocopheryl Acet) 400 UNITS CAP PO SCH (08:47)
[2018-01-16] MEDS: Pravastatin Sodium 20 MG TAB PO SCH (08:47)
[2018-01-16] MEDS: Aspirin 81 mg Enteric Coated Tablet PO SCH ×2 (08:47→20:04)
[2018-01-16] MEDS: Gabapentin 300 MG CAP PO SCH ×3 (08:48→20:03)
[2018-01-16] MEDS: Multivitamin W/ Minerals 1 TAB PO SCH (08:49)
[2018-01-16] MEDS: Escitalopram Oxalate 10 mg Tablet PO SCH (08:49)
[2018-01-16] MEDS: Ubidecarenone 50 MG CAP PO SCH (08:49)
[2018-01-16] MEDS: Fish Oil 1,000 MG CAP PO SCH (08:49)
[2018-01-16] MEDS: GARLIC 1000 MG PO SCH (08:55)
[2018-01-16] MEDS: IRON CARB PO SCH (10:21)
[2018-01-16] MEDS: FOLIC PO SCH (10:21)
[2018-01-16] MEDS: VIT B12 PO SCH (10:21)
[2018-01-16] MEDS: VIT C PO SCH (10:21)
[2018-01-16] MEDS: Melatonin 3 MG TAB PO SCH (20:04)
[2018-01-16] MEDS: traZODone HCl 50 MG TAB PO SCH (20:04)
[2018-01-16] MEDS: Stress 600 With Zinc 1 TAB PO SCH (20:04)
--- NOTE | 2018-01-16 22:28 | PRG ---
DATE OF SERVICE: 01/16/2018 SUBJECTIVE: Patient is a 72-year-old white female, status post recent left total knee replacement, w ho was doing well with decreasing swelling and tenderness and pain, cooperating well with therapy. OBJECTIVE: VITAL SIGNS: Shows temperature is 97.4, pulse 94, respirations 18, O2 sats 92% on room air, blood pr essure 148/64. LUNGS: Clear. CARDIAC: Shows regular rhythm. ABDOMEN: Soft and nontender. ASSESSMENT: 1. Resolving left total knee replacement. 2. Stable peripheral neuropathy. 3. Stable hypertension. PLAN: Continue PT, OT. Start Senokot at patient's request for constipation. Continue stress ulcer and DVT prophylaxis.
[2018-01-16] MEDS: Senokot S 8.6-50 MG TAB PO PRN (23:59)
[2018-01-17] MEDS: Levothyroxine Sodium 25 MCG TAB PO SCH (05:56)
[2018-01-17] MEDS: HYDROcodone/Acetaminophen 10/325 mg Tablet PO PRN ×5 (05:57→23:37)
[2018-01-17] MEDS: Fish Oil 1,000 MG CAP PO SCH (09:00)
[2018-01-17] MEDS: Vitami E (Dl,Tocopheryl Acet) 400 UNITS CAP PO SCH (09:01)
[2018-01-17] MEDS: Aspirin 81 mg Enteric Coated Tablet PO SCH ×2 (09:01→20:48)
[2018-01-17] MEDS: Folic Acid 1 MG TAB PO SCH (09:01)
[2018-01-17] MEDS: Ubidecarenone 50 MG CAP PO SCH (09:01)
[2018-01-17] MEDS: Pravastatin Sodium 20 MG TAB PO SCH (09:02)
[2018-01-17] MEDS: Multivitamin W/ Minerals 1 TAB PO SCH (09:02)
[2018-01-17] MEDS: Gabapentin 300 MG CAP PO SCH ×3 (09:04→20:47)
[2018-01-17] MEDS: Cyclobenzaprine 10 MG TAB PO SCH ×3 (09:04→20:48)
[2018-01-17] MEDS: Escitalopram Oxalate 10 mg Tablet PO SCH (09:05)
[2018-01-17] MEDS: GARLIC 1000 MG PO SCH (09:06)
[2018-01-17] MEDS: VIT B12 PO SCH (09:07)
[2018-01-17] MEDS: FOLIC PO SCH (09:07)
[2018-01-17] MEDS: VIT C PO SCH (09:07)
[2018-01-17] MEDS: IRON CARB PO SCH (09:07)
[2018-01-17] MEDS: Senokot S 8.6-50 MG TAB PO PRN (19:38)
--- NOTE | 2018-01-17 19:43 | PRG ---
DATE OF SERVICE: 01/17/2018 SUBJECTIVE: The patient feels better, up in the wheelchair, ambulating, moving her left knee still u nable to extend 180 degrees, but is ambulating with a wheelchair with no difficulty and transferring. OBJECTIVE: VITAL SIGNS: Temperature is 98, pulse 91, respirations 18, O2 sats 92% on room air, blood pressure 1 44/65. LUNGS: Clear. CARDIAC: Shows regular rhythm. EXTREMITIES: Left leg shows healing anterior incision. Her left total knee with decreasing swelling and minimal erythema. ASSESSMENT: 1. Resolving left total knee replacement. 2. Stable peripheral neuropathy. 3. Stable hypertension. 4. Chronic constipation. PLAN: 1. Continue stress ulcer and DVT prophylaxis. 2. Continue pain relief per Dr. Mckinnon. 3. Continue PT and OT. 4. Continue Senokot as needed for constipation.
[2018-01-17] MEDS: Melatonin 3 MG TAB PO SCH (20:48)
[2018-01-17] MEDS: traZODone HCl 50 MG TAB PO SCH (20:48)
[2018-01-17] MEDS: Stress 600 With Zinc 1 TAB PO SCH (20:48)
[2018-01-18] MEDS: HYDROcodone/Acetaminophen 10/325 mg Tablet PO PRN ×5 (05:05→21:34)
[2018-01-18] MEDS: Levothyroxine Sodium 25 MCG TAB PO SCH (05:05)
[2018-01-18] MEDS: Escitalopram Oxalate 10 mg Tablet PO SCH (09:07)
[2018-01-18] MEDS: Cyclobenzaprine 10 MG TAB PO SCH ×3 (09:07→20:46)
[2018-01-18] MEDS: Aspirin 81 mg Enteric Coated Tablet PO SCH ×2 (09:07→20:46)
[2018-01-18] MEDS: Fish Oil 1,000 MG CAP PO SCH (09:07)
[2018-01-18] MEDS: Multivitamin W/ Minerals 1 TAB PO SCH (09:08)
[2018-01-18] MEDS: Folic Acid 1 MG TAB PO SCH (09:08)
[2018-01-18] MEDS: VIT B12 PO SCH (09:08)
[2018-01-18] MEDS: FOLIC PO SCH (09:08)
[2018-01-18] MEDS: Gabapentin 300 MG CAP PO SCH ×3 (09:08→20:46)
[2018-01-18] MEDS: IRON CARB PO SCH (09:08)
[2018-01-18] MEDS: VIT C PO SCH (09:08)
[2018-01-18] MEDS: GARLIC 1000 MG PO SCH (09:09)
[2018-01-18] MEDS: Pravastatin Sodium 20 MG TAB PO SCH (09:10)
[2018-01-18] MEDS: Ubidecarenone 50 MG CAP PO SCH (09:10)
[2018-01-18] MEDS: Vitami E (Dl,Tocopheryl Acet) 400 UNITS CAP PO SCH (09:11)
[2018-01-18] MEDS ORDERED: Sodium Chloride 0.9% 0 ML ONE (09:58)
--- NOTE | 2018-01-18 13:29 | PRG ---
DATE OF SERVICE: 01/18/2018 SUBJECTIVE: Ms. Lujan is doing well. Denies any complaints, resting comfortably. Pain medicines ar e helping. Tolerating her therapy. No family at bedside, discussed with nursing. OBJECTIVE: VITAL SIGNS: She is afebrile, heart rate 83, respirations 18, oxygen saturation 94% on room air, blo od pressure 136/62. CARDIOVASCULAR: S1, S2 plus. RESPIRATORY SYSTEM: Normal vesicular breath sounds. ABDOMEN: Soft, obese, nontender. Bowel sounds heard in all quadrants. EXTREMITIES: Without cyanosis or clubbing. Trace edema left leg, left knee incision with dressing. CENTRAL NERVOUS SYSTEM: Improving deconditioning. IMPRESSION: 1. Degenerative joint disease, status post left total knee replacement. 2. Hypertension. 3. Gastroesophageal reflux disease. 4. Degenerative joint disease. 5. Dyslipidemia. 6. Peripheral neuropathy. 7. History of rheumatoid arthritis. 8. Mildly elevated TSH, but normal T3 and T4. PLAN: 1. I advised the patient that I would not recommend her taking any thyroid supplementation at this t nicolle. 2. Continue incision care. 3. Nutritional support. 4. DVT and stress ulcer prophylaxis. 5. Decubitus precautions. 6. Physical therapy. 7. Routine laboratory values. 8. Discussed with patient in detail. All questions answered.
[2018-01-18] MEDS ORDERED: guaiFENesin ER 600 MG TAB PO PRN (13:50)
[2018-01-18] MEDS: Senokot S 8.6-50 MG TAB PO PRN (17:30)
[2018-01-18] MEDS: traZODone HCl 50 MG TAB PO SCH (20:46)
[2018-01-18] MEDS: Stress 600 With Zinc 1 TAB PO SCH (20:46)
[2018-01-18] MEDS: Melatonin 3 MG TAB PO SCH (20:46)
[2018-01-19] MEDS: HYDROcodone/Acetaminophen 10/325 mg Tablet PO PRN ×6 (01:48→23:22)
[2018-01-19] MEDS: Levothyroxine Sodium 25 MCG TAB PO SCH (05:57)
[2018-01-19] MEDS: Aspirin 81 mg Enteric Coated Tablet PO SCH ×2 (08:24→20:56)
[2018-01-19] MEDS: Escitalopram Oxalate 10 mg Tablet PO SCH (08:25)
[2018-01-19] MEDS: Fish Oil 1,000 MG CAP PO SCH (08:25)
[2018-01-19] MEDS: Folic Acid 1 MG TAB PO SCH (08:25)
[2018-01-19] MEDS: Multivitamin W/ Minerals 1 TAB PO SCH (08:25)
[2018-01-19] MEDS: Gabapentin 300 MG CAP PO SCH ×3 (08:25→20:54)
[2018-01-19] MEDS: Cyclobenzaprine 10 MG TAB PO SCH ×3 (08:25→20:54)
[2018-01-19] MEDS: IRON CARB PO SCH (08:26)
[2018-01-19] MEDS: FOLIC PO SCH (08:26)
[2018-01-19] MEDS: GARLIC 1000 MG PO SCH (08:26)
[2018-01-19] MEDS: VIT B12 PO SCH (08:26)
[2018-01-19] MEDS: VIT C PO SCH (08:26)
[2018-01-19] MEDS: Pravastatin Sodium 20 MG TAB PO SCH (08:27)
[2018-01-19] MEDS: Ubidecarenone 50 MG CAP PO SCH (08:27)
[2018-01-19] MEDS: Vitami E (Dl,Tocopheryl Acet) 400 UNITS CAP PO SCH (08:27)
--- NOTE | 2018-01-19 13:36 | PRG ---
DATE OF SERVICE: 01/19/2018 SUBJECTIVE: Ms. Lujan is doing well except she states that she cannot tolerate the Mucinex. She sti ll has a dry cough. Pain is improving. Tolerating therapy. No family at bedside, discussed with alejandro haas. OBJECTIVE: VITAL SIGNS: She is afebrile, heart rate 98, respirations 18, oxygen saturation 96% on room air, blo od pressure 108/68. CARDIOVASCULAR: S1, S2 plus. RESPIRATORY SYSTEM: Normal vesicular breath sounds. ABDOMEN: Soft, obese, nontender. Bowel sounds heard in all quadrants. EXTREMITIES: Without cyanosis or clubbing. Left knee incision with dressing. Minimal drainage from the inferior aspect of it. We will ask nurses to change it. IMPRESSION: 1. Dry cough, possible allergies versus the dry air. We will discontinue Mucinex and start her on T essalon Perles. 2. Status post left total knee replacement. 3. Obesity. 4. Hypertension. 5. Gastroesophageal reflux disease. 6. Dyslipidemia. 7. Peripheral neuropathy. PLAN: 1. Tessalon Perles 100 mg t.i.d. p.r.n. 2. Heart healthy diet. 3. DVT and stress ulcer prophylaxis. 4. Decubitus precautions. 5. Physical therapy. 6. Routine laboratory values. 7. I discussed with the patient in detail and all questions answered.
[2018-01-19] MEDS: Benzonatate 100 MG CAP PO PRN (20:53)
[2018-01-19] MEDS: Stress 600 With Zinc 1 TAB PO SCH (20:54)
[2018-01-19] MEDS: traZODone HCl 50 MG TAB PO SCH (20:54)
[2018-01-19] MEDS: Melatonin 3 MG TAB PO SCH (20:54)
[2018-01-20] MEDS: HYDROcodone/Acetaminophen 10/325 mg Tablet PO PRN ×5 (03:32→20:18)
[2018-01-20] MEDS: Levothyroxine Sodium 25 MCG TAB PO SCH (05:01)
[2018-01-20] MEDS: Gabapentin 300 MG CAP PO SCH ×3 (07:51→20:17)
[2018-01-20] MEDS: Cyclobenzaprine 10 MG TAB PO SCH ×3 (07:51→20:17)
[2018-01-20] MEDS: Aspirin 81 mg Enteric Coated Tablet PO SCH ×2 (07:51→20:17)
[2018-01-20] MEDS: Pravastatin Sodium 20 MG TAB PO SCH (07:51)
[2018-01-20] MEDS: FOLIC PO SCH (07:53)
[2018-01-20] MEDS: Folic Acid 1 MG TAB PO SCH (07:53)
[2018-01-20] MEDS: VIT C PO SCH (07:53)
[2018-01-20] MEDS: Multivitamin W/ Minerals 1 TAB PO SCH (07:53)
[2018-01-20] MEDS: IRON CARB PO SCH (07:53)
[2018-01-20] MEDS: Escitalopram Oxalate 10 mg Tablet PO SCH (07:53)
[2018-01-20] MEDS: Vitami E (Dl,Tocopheryl Acet) 400 UNITS CAP PO SCH (07:53)
[2018-01-20] MEDS: VIT B12 PO SCH (07:53)
[2018-01-20] MEDS: Ubidecarenone 50 MG CAP PO SCH (07:53)
[2018-01-20] MEDS: Fish Oil 1,000 MG CAP PO SCH (07:53)
[2018-01-20] MEDS: GARLIC 1000 MG PO SCH (07:54)
--- NOTE | 2018-01-20 13:39 | PRG ---
DATE OF SERVICE: 01/20/2018 SUBJECTIVE: Ms. Lujan is doing well. She is up in her wheelchair. Her cough is much improved. She still has pain in her left knee, but it is controlled with pain medications. No family at bedside, discussed with nursing. OBJECTIVE: VITAL SIGNS: She is afebrile, heart rate 93, respirations 18. Oxygen saturation documented at 85% o n room air. This is from 8:00 this morning. I had them recheck it and it was 96%, blood pressure 13 2/60. CARDIOVASCULAR: S1, S2 plus. RESPIRATORY SYSTEM: Normal vesicular breath sounds. ABDOMEN: Soft, nontender, obese. Bowel sounds heard in all quadrants. EXTREMITIES: Without cyanosis or clubbing, 1+ edema to left leg, left knee incision with dressing. CENTRAL NERVOUS SYSTEM: Generalized weakness. IMPRESSION: 1. Left knee degenerative joint disease status post total knee replacement. 2. Improving cough. 3. Mild elevated TSH. 4. Dyslipidemia. 5. Peripheral neuropathy. 6. Depression. PLAN: 1. Continue current medications. 2. Nutritional support. 3. DVT and stress ulcer prophylaxis. 4. Decubitus precautions. 5. Routine laboratory values.
[2018-01-20 14:14] VITALS: BMI 39.3
[2018-01-20] MEDS: Stress 600 With Zinc 1 TAB PO SCH (20:18)
[2018-01-20] MEDS: Melatonin 3 MG TAB PO SCH (20:18)
[2018-01-20] MEDS: traZODone HCl 50 MG TAB PO SCH (20:18)
[2018-01-20] MEDS: Benzonatate 100 MG CAP PO PRN (20:26)
[2018-01-20] MEDS: Senokot S 8.6-50 MG TAB PO PRN (20:26)
[2018-01-21] MEDS: HYDROcodone/Acetaminophen 10/325 mg Tablet PO PRN ×5 (01:59→21:28)
[2018-01-21 05:20] LABS: Hemoglobin 9.6 g/dL (12.0-16.0); Mean Corpuscular HGB CONC 31.4 g/dL (32.0-36.0); Mean Corpuscular Hemoglobin 28.4 pg (27.0-31.0); Mean Corpuscular Volume 90.5 fL (78.0-98.0); Platelet Count 239 thou/uL (130-400); RBC Distribution Width 13.9 % (11.5-14.5); Red Blood Cell (RBC) Count 3.39 mill/uL (4.20-5.40); White Blood Cell (WBC) Count 7.8 thou/uL (4.8-10.8)
[2018-01-21 05:21] LABS: #Basophils 0.1 thou/uL (0.0-0.2); #Eosinphils 1.2 thou/uL (0.0-0.7); #Lymphocytes 1.9 thou/uL (1.20-3.40); #Monocytes 0.7 thou/uL (0.11-0.59); %Basophils 1.2 % (0.0-1.0); %Eosinophils 15.1 % (0.0-10.0); %Lymphocytes 24.4 % (21.0-51.0); %Monocytes 8.8 % (0.0-10.0); %Neutrophils 50.4 % (42.0-75.0); Mean Platelet Volume 4.9 fL (7.4-10.4)
[2018-01-21 05:22] LABS: MDiff Complete? YES; Manual Diff?? NO
[2018-01-21 05:30] LABS: Anion Gap 11 mmol/L (10-20); BUN (Urea Nitrogen) 10 mg/dL (9.8-20.1); Calc. Creatinine Clearance 125 mL/min (70-130); Calcium 9.3 mg/dL (7.8-10.44); Carbon Dioxide 33 mmol/L (23-31); Chloride 100 mmol/L (98-107); Estimated GFR-MDRD 85; Glucose 103 mg/dL (83-110); Potassium 4.6 mmol/L (3.5-5.1); Sodium 139 mmol/L (136-145)
[2018-01-21] MEDS: Levothyroxine Sodium 25 MCG TAB PO SCH (06:15)
[2018-01-21] MEDS: Benzonatate 100 MG CAP PO PRN ×2 (06:16→17:15)
[2018-01-21] MEDS: Aspirin 81 mg Enteric Coated Tablet PO SCH ×2 (08:33→21:27)
[2018-01-21] MEDS: Fish Oil 1,000 MG CAP PO SCH (08:39)
[2018-01-21] MEDS: Escitalopram Oxalate 10 mg Tablet PO SCH (08:39)
[2018-01-21] MEDS: Folic Acid 1 MG TAB PO SCH (08:40)
[2018-01-21] MEDS: Gabapentin 300 MG CAP PO SCH ×3 (08:40→21:27)
[2018-01-21] MEDS: Multivitamin W/ Minerals 1 TAB PO SCH (08:41)
[2018-01-21] MEDS: Ubidecarenone 50 MG CAP PO SCH (08:45)
[2018-01-21] MEDS: Pravastatin Sodium 20 MG TAB PO SCH (08:48)
[2018-01-21] MEDS: Vitami E (Dl,Tocopheryl Acet) 400 UNITS CAP PO SCH (08:49)
[2018-01-21] MEDS: Cyclobenzaprine 10 MG TAB PO SCH ×3 (08:52→21:27)
[2018-01-21] MEDS: VIT C PO SCH (08:56)
[2018-01-21] MEDS: VIT B12 PO SCH (08:56)
[2018-01-21] MEDS: IRON CARB PO SCH (08:56)
[2018-01-21] MEDS: FOLIC PO SCH (08:56)
[2018-01-21] MEDS: GARLIC 1000 MG PO SCH (08:56)
--- NOTE | 2018-01-21 13:07 | PRG ---
DATE OF SERVICE: 01/21/2018 SUBJECTIVE: Ms. Lujan is doing well, tolerating therapy, trying to cut down on her pain medications. Denies any concerns or questions. She does have a followup appointment with Ortho next Thursday per patient. No family at bedside. OBJECTIVE: VITAL SIGNS: She is afebrile, heart rate 88, respirations 18, oxygen saturation 97% on room air, blo od pressure 138/62. CARDIOVASCULAR SYSTEM: S1 and S2 plus. RESPIRATORY SYSTEM: Normal vesicular breath sounds. ABDOMEN: Soft, nontender, bowel sounds heard in all quadrants, obese. EXTREMITIES: Without cyanosis or clubbing. Left knee incision with dressing. Improving left leg ed robert. CENTRAL NERVOUS SYSTEM: Improving deconditioning. LABORATORY VALUES: White count is 7.8, H and H is 9.6 and 30.7. Sodium 139, potassium 4.6, BUN and creatinine is 10 and 0.68. IMPRESSION: 1. Degenerative joint disease, status post left total knee replacement. 2. Mild hypothyroidism. 3. History of rheumatoid arthritis. 4. Peripheral neuropathy. 5. Resolved cough. 6. Depression. 7. Dyslipidemia. PLAN: 1. Continue current medications. 2. Incision care. 3. Heart healthy diet. 4. DVT and stress ulcer prophylaxis. 5. Decubitus precautions. 6. Routine laboratory values. 7. Physical therapy. 8. I discussed with the patient and nursing in detail. All questions answered.
[2018-01-21] MEDS: Stress 600 With Zinc 1 TAB PO SCH (21:28)
[2018-01-21] MEDS: Melatonin 3 MG TAB PO SCH (21:28)
[2018-01-21] MEDS: Senokot S 8.6-50 MG TAB PO PRN (21:28)
[2018-01-21] MEDS: traZODone HCl 50 MG TAB PO SCH (21:28)
[2018-01-21 22:06] LABS: Bilirubin Negative (Negative); Blood, Urine Large (Negative); Clarity Clear (Clear); Glucose, Urine (Dipstick) Negative (Negative); Leukocyte Negative (Negative); Nitrite Negative (Negative); Protein, Urine (Dipstick) Negative (Neg-Trace); Specific Gravity, Urine 1.015 (1.005-1.030); pH, Urine 7.5 (5.0-9.0)
[2018-01-22] MEDS: Levothyroxine Sodium 25 MCG TAB PO SCH (05:17)
[2018-01-22] MEDS: HYDROcodone/Acetaminophen 10/325 mg Tablet PO PRN ×3 (05:17→20:00)
[2018-01-22] MEDS: Naproxen 500 MG TAB PO SCH ×3 (08:28→19:59)
[2018-01-22] MEDS: Pravastatin Sodium 20 MG TAB PO SCH (08:28)
[2018-01-22] MEDS: Folic Acid 1 MG TAB PO SCH (08:31)
[2018-01-22] MEDS: Gabapentin 300 MG CAP PO SCH ×3 (08:31→19:58)
[2018-01-22] MEDS: Escitalopram Oxalate 10 mg Tablet PO SCH (08:31)
[2018-01-22] MEDS: Multivitamin W/ Minerals 1 TAB PO SCH (08:32)
[2018-01-22] MEDS: Fish Oil 1,000 MG CAP PO SCH (08:32)
[2018-01-22] MEDS: Aspirin 81 mg Enteric Coated Tablet PO SCH ×2 (08:32→19:58)
[2018-01-22] MEDS: GARLIC 1000 MG PO SCH (08:34)
[2018-01-22] MEDS: Vitami E (Dl,Tocopheryl Acet) 400 UNITS CAP PO SCH (08:37)
[2018-01-22] MEDS: Ubidecarenone 50 MG CAP PO SCH (08:38)
[2018-01-22] MEDS: VIT B12 PO SCH (08:47)
[2018-01-22] MEDS: IRON CARB PO SCH (08:47)
[2018-01-22] MEDS: VIT C PO SCH (08:47)
[2018-01-22] MEDS: FOLIC PO SCH (08:47)
[2018-01-22] MEDS: Cyclobenzaprine 10 MG TAB PO SCH ×3 (10:52→19:58)
[2018-01-22] MEDS: Stress 600 With Zinc 1 TAB PO SCH (19:59)
[2018-01-22] MEDS: Benzonatate 100 MG CAP PO PRN (19:59)
[2018-01-22] MEDS: Melatonin 3 MG TAB PO SCH (19:59)
[2018-01-22] MEDS: traZODone HCl 50 MG TAB PO SCH (19:59)
[2018-01-22] MEDS: Senokot S 8.6-50 MG TAB PO PRN (19:59)
[2018-01-23] MEDS: Levothyroxine Sodium 25 MCG TAB PO SCH (05:17)
[2018-01-23] MEDS: HYDROcodone/Acetaminophen 10/325 mg Tablet PO PRN ×4 (05:17→19:24)
[2018-01-23] MEDS: Aspirin 81 mg Enteric Coated Tablet PO SCH ×2 (08:03→20:55)
[2018-01-23] MEDS: Naproxen 500 MG TAB PO SCH ×2 (08:03→17:28)
[2018-01-23] MEDS: Fish Oil 1,000 MG CAP PO SCH (08:04)
[2018-01-23] MEDS: Multivitamin W/ Minerals 1 TAB PO SCH (08:04)
[2018-01-23] MEDS: Cyclobenzaprine 10 MG TAB PO SCH ×3 (08:04→20:54)
[2018-01-23] MEDS: Folic Acid 1 MG TAB PO SCH (08:04)
[2018-01-23] MEDS: Gabapentin 300 MG CAP PO SCH ×3 (08:04→20:54)
[2018-01-23] MEDS: Escitalopram Oxalate 10 mg Tablet PO SCH (08:04)
[2018-01-23] MEDS: GARLIC 1000 MG PO SCH (08:05)
[2018-01-23] MEDS: FOLIC PO SCH (08:05)
[2018-01-23] MEDS: VIT B12 PO SCH (08:05)
[2018-01-23] MEDS: VIT C PO SCH (08:05)
[2018-01-23] MEDS: IRON CARB PO SCH (08:05)
[2018-01-23] MEDS: Vitami E (Dl,Tocopheryl Acet) 400 UNITS CAP PO SCH (08:06)
[2018-01-23] MEDS: Pravastatin Sodium 20 MG TAB PO SCH (08:06)
[2018-01-23] MEDS: Ubidecarenone 50 MG CAP PO SCH (08:06)
[2018-01-23] MEDS: Melatonin 3 MG TAB PO SCH (20:54)
[2018-01-23] MEDS: Senokot S 8.6-50 MG TAB PO PRN (20:54)
[2018-01-23] MEDS: Stress 600 With Zinc 1 TAB PO SCH (20:55)
[2018-01-23] MEDS: traZODone HCl 50 MG TAB PO SCH (20:55)
[2018-01-23] MEDS ORDERED: Milk Of Magnesia 30 ML UDCUP PO PRN (22:03)
[2018-01-24] MEDS: HYDROcodone/Acetaminophen 10/325 mg Tablet PO PRN ×6 (00:31→22:22)
--- NOTE | 2018-01-24 01:20 | PRG ---
DATE OF SERVICE: 01/23/2018 SUBJECTIVE: Ms. Lujan is a very pleasant 72-year-old white female that had a total knee replacement done by Dr. Jay. Postoperatively, she needed inpatient rehabilitation, was transferred to skilled unit here in [place]. She has had significant problems with her pain and Dr. Mckinnon slowly weaning h er down. She had a good day today, although she has some slight swelling in that leg, but she says it has been like that. OBJECTIVE: VITAL SIGNS: Reveal blood pressure this morning 131/60, pulse 86, respirations 18, O2 sat 94%-97% on room air, T-max 98.7. GENERAL: Well-developed, well-nourished, obese white female in no apparent distress at this time. HEENT: Reveals normocephalic, nontraumatic cranium. Pupils equal, round, and reactive. Extraocular movements intact. Nose and throat are slightly dry. NECK: Supple, without mass, nodes or bruits. LUNGS: Chest is clear to auscultation. No rales, rhonchi or wheezes are heard. CARDIOVASCULAR: Reveals a regular rate and rhythm without murmurs, gallops or rubs. ABDOMEN: Soft, nontender, without organomegaly, normal bowel sounds are noted. Morbidly obese. No rebound or guarding is noted. GENITOURINARY: Deferred. EXTREMITIES: Reveal no clubbing, cyanosis or edema. Left knee incision has a clear dressing; howeve r, it seems like it has a little bit of oozing at one place. Left leg has continued edema. It is no t red, not hot, not warm. IMPRESSION: 1. Degenerative joint disease, status post left total knee by Dr. Giraldo. 2. Hypothyroidism. 3. Rheumatoid arthritis. 4. Peripheral neuropathy. 5. Hyperlipidemia. 6. Depression. 7. Generalized weakness. PLAN: 1. Continue healthy heart diet. 2. Continue present meds. 3. Incision care. 4. Decubitus precautions. 5. Deep venous and stress ulcer prophylaxis. 6. Continue routine labs. 7. Continue physical therapy and occupational therapy.
[2018-01-24] MEDS: Levothyroxine Sodium 25 MCG TAB PO SCH (05:37)
[2018-01-24] MEDS: Fish Oil 1,000 MG CAP PO SCH (08:25)
[2018-01-24] MEDS: Naproxen 500 MG TAB PO SCH ×2 (08:25→17:23)
[2018-01-24] MEDS: Folic Acid 1 MG TAB PO SCH (08:25)
[2018-01-24] MEDS: Cyclobenzaprine 10 MG TAB PO SCH ×3 (08:25→20:49)
[2018-01-24] MEDS: Escitalopram Oxalate 10 mg Tablet PO SCH (08:25)
[2018-01-24] MEDS: Aspirin 81 mg Enteric Coated Tablet PO SCH ×2 (08:25→20:48)
[2018-01-24] MEDS: GARLIC 1000 MG PO SCH (08:26)
[2018-01-24] MEDS: Multivitamin W/ Minerals 1 TAB PO SCH (08:26)
[2018-01-24] MEDS: Gabapentin 300 MG CAP PO SCH ×3 (08:26→20:48)
[2018-01-24] MEDS: VIT C PO SCH (08:26)
[2018-01-24] MEDS: IRON CARB PO SCH (08:26)
[2018-01-24] MEDS: VIT B12 PO SCH (08:26)
[2018-01-24] MEDS: FOLIC PO SCH (08:26)
[2018-01-24] MEDS: Vitami E (Dl,Tocopheryl Acet) 400 UNITS CAP PO SCH (08:27)
[2018-01-24] MEDS: Pravastatin Sodium 20 MG TAB PO SCH (08:27)
[2018-01-24] MEDS: Ubidecarenone 50 MG CAP PO SCH (08:27)
--- NOTE | 2018-01-24 09:23 | PRG ---
DATE OF SERVICE: 01/24/2018 SUBJECTIVE: Ms. Lujan is a 72-year-old very pleasant white female that had an elective total knee re placement done by Dr. Jay. Postoperatively, she had significant weakness and needed some inpatient rehabilitation since she lives by herself. She was transferred to [facility] in [facility] for PT and OT. The patient states she rested well last night. Her leg is less swollen today than it was yesterday. It is not warm, red or oozing. PHYSICAL EXAMINATION: VITAL SIGNS: Reveal blood pressure 131/60, which is still from last night. Pulse 86, respirations 1 8, O2 sat 94%-97%, still on room air. T-max 98.7. GENERAL: This is a well-developed, well-nourished, somewhat obese white female sitting on the side o f the bed in no apparent distress at this time. HEENT: Reveals normocephalic, nontraumatic cranium. Pupils equal, round, and reactive to light. Ex traocular movements intact. Nose and throat are moist this morning. NECK: Supple, without mass, nodes or bruits. LUNGS: Chest is clear to auscultation. No rales, rhonchi, wheezes or cough is heard. CARDIOVASCULAR: Heart reveals a regular rate and rhythm without murmurs, gallops or rubs. ABDOMEN: Soft, nontender, without organomegaly. Normal bowel sounds are heard in all 4 quadrants. No rebound or guarding is noted. GENITOURINARY: Deferred. EXTREMITIES: Reveal left knee incision still has a clear dressing over, it is not oozing or weeping. It is not red or warm. It seems to have less edema than yesterday. IMPRESSION: 1. Degenerative joint disease, status post total left knee by Dr. Jay. 2. Hypothyroidism. 3. Peripheral neuropathy. 4. Hyperlipidemia. 5. Rheumatoid arthritis. 6. Depression. 7. Generalized weakness. PLAN: 1. Continue to be up and around over the weekend, walking with the nurses. 2. Continue present medications. 3. Healthy heart diet. 4. Decubitus precautions. 5. Deep venous thrombosis and stress ulcer prophylaxis. 6. Routine labs. 7. Incisional care. 8. Continue physical therapy and occupational therapy.
[2018-01-24] MEDS: Benzonatate 100 MG CAP PO PRN (09:32)
[2018-01-24] MEDS: Stress 600 With Zinc 1 TAB PO SCH (20:48)
[2018-01-24] MEDS: traZODone HCl 50 MG TAB PO SCH (20:49)
[2018-01-24] MEDS: Senokot S 8.6-50 MG TAB PO PRN (20:49)
[2018-01-24] MEDS: Melatonin 3 MG TAB PO SCH (20:49)
[2018-01-25] MEDS: HYDROcodone/Acetaminophen 10/325 mg Tablet PO PRN ×5 (03:01→20:45)
[2018-01-25] MEDS: Levothyroxine Sodium 25 MCG TAB PO SCH (05:21)
[2018-01-25] MEDS: Benzonatate 100 MG CAP PO PRN (05:24)
[2018-01-25] MEDS: Fish Oil 1,000 MG CAP PO SCH (08:25)
[2018-01-25] MEDS: Ubidecarenone 50 MG CAP PO SCH (08:25)
[2018-01-25] MEDS: Multivitamin W/ Minerals 1 TAB PO SCH (08:25)
[2018-01-25] MEDS: Vitami E (Dl,Tocopheryl Acet) 400 UNITS CAP PO SCH (08:25)
[2018-01-25] MEDS: Pravastatin Sodium 20 MG TAB PO SCH (08:25)
[2018-01-25] MEDS: Gabapentin 300 MG CAP PO SCH ×3 (08:26→20:41)
[2018-01-25] MEDS: Naproxen 500 MG TAB PO SCH ×2 (08:26→16:01)
[2018-01-25] MEDS: Escitalopram Oxalate 10 mg Tablet PO SCH (08:26)
[2018-01-25] MEDS: Folic Acid 1 MG TAB PO SCH (08:26)
[2018-01-25] MEDS: Aspirin 81 mg Enteric Coated Tablet PO SCH ×2 (08:26→20:41)
[2018-01-25] MEDS: IRON CARB PO SCH (08:27)
[2018-01-25] MEDS: FOLIC PO SCH (08:27)
[2018-01-25] MEDS: VIT B12 PO SCH (08:27)
[2018-01-25] MEDS: VIT C PO SCH (08:27)
[2018-01-25] MEDS: GARLIC 1000 MG PO SCH (08:27)
[2018-01-25] MEDS: Cyclobenzaprine 10 MG TAB PO SCH ×3 (08:27→20:41)
--- NOTE | 2018-01-25 18:34 | PRG ---
DATE OF SERVICE: 01/25/2018 SUBJECTIVE: Ms. Lujan is doing well. Denies any complaints, resting comfortably. She has cut down on her pain medicines. She is ambulating better. Discussed with therapy and they state that she piper l be ready to go home on Thursday with home health. The patient denies any concerns or questions. No family at bedside. OBJECTIVE: VITAL SIGNS: She is afebrile, heart rate is 89, respirations 18, oxygen saturation 92% on room air, blood pressure was 167/74 this morning, last night 133/63. CARDIOVASCULAR: S1, S2 plus. RESPIRATORY: Normal vesicular breath sounds. ABDOMEN: Soft, nontender, bowel sounds heard in all quadrants. EXTREMITIES: Without cyanosis or clubbing. Peripheral pulses are palpable. Left knee incision is h ealthy. CENTRAL NERVOUS SYSTEM: Improving deconditioning. IMPRESSION: 1. Degenerative joint disease, status post left total knee replacement. 2. Mild hypothyroidism. 3. Rheumatoid arthritis. 4. Peripheral neuropathy. 5. Depression. 6. Dyslipidemia and improving deconditioning. PLAN: 1. Continue current medications. 2. Nutritional support. 3. Deep venous thrombosis prophylaxis. 4. Decubitus precautions. 5. Incision care. 6. Physical therapy. 7. Routine laboratory values. 8. Anticipate discharge on Thursday. We will consult case management to arrange home health.
[2018-01-25] MEDS: Melatonin 3 MG TAB PO SCH (20:41)
[2018-01-25] MEDS: traZODone HCl 50 MG TAB PO SCH (20:42)
[2018-01-25] MEDS: Stress 600 With Zinc 1 TAB PO SCH (20:42)
[2018-01-25] MEDS: Senokot S 8.6-50 MG TAB PO PRN (20:42)
[2018-01-26] MEDS: Benzonatate 100 MG CAP PO PRN ×2 (02:33→20:20)
[2018-01-26] MEDS: Levothyroxine Sodium 25 MCG TAB PO SCH (04:58)
[2018-01-26] MEDS: HYDROcodone/Acetaminophen 10/325 mg Tablet PO PRN ×5 (04:58→21:45)
[2018-01-26] MEDS: Naproxen 500 MG TAB PO SCH ×2 (08:04→17:40)
[2018-01-26] MEDS: Multivitamin W/ Minerals 1 TAB PO SCH (09:04)
[2018-01-26] MEDS: Vitami E (Dl,Tocopheryl Acet) 400 UNITS CAP PO SCH (09:04)
[2018-01-26] MEDS: Gabapentin 300 MG CAP PO SCH ×3 (09:04→20:19)
[2018-01-26] MEDS: Cyclobenzaprine 10 MG TAB PO SCH ×3 (09:04→20:19)
[2018-01-26] MEDS: Folic Acid 1 MG TAB PO SCH (09:04)
[2018-01-26] MEDS: Aspirin 81 mg Enteric Coated Tablet PO SCH ×2 (09:04→20:19)
[2018-01-26] MEDS: Fish Oil 1,000 MG CAP PO SCH (09:04)
[2018-01-26] MEDS: Escitalopram Oxalate 10 mg Tablet PO SCH (09:05)
[2018-01-26] MEDS: Pravastatin Sodium 20 MG TAB PO SCH (09:05)
[2018-01-26] MEDS: Ubidecarenone 50 MG CAP PO SCH (09:05)
--- NOTE | 2018-01-26 09:21 | PRG ---
DATE OF SERVICE: 01/26/2018 SUBJECTIVE: Ms. Lujan is doing well. Denies any complaints. She is actually working outside with [employer], getting up and down the stairs. The plan is for her to go home tomorrow. Consult for case m joselyn has been sent for them to arrange for home health. No other concerns or questions. No fam isaura at bedside. OBJECTIVE: VITAL SIGNS: She is afebrile, heart rate 106, respirations 18, oxygen saturation 98% on room air, bl ood pressure 144/65. CARDIOVASCULAR: S1, S2 plus. RESPIRATORY SYSTEM: Normal vesicular breath sounds. ABDOMEN: Soft, obese, nontender. Bowel sounds heard in all quadrants. EXTREMITIES: Without cyanosis or clubbing. Trace edema left leg, left knee incision is healthy. CENTRAL NERVOUS SYSTEM: Improving deconditioning. IMPRESSION: 1. Degenerative joint disease, status post left total knee replacement. 2. Peripheral neuropathy. 3. Rheumatoid arthritis. 4. Mild hypothyroidism. 5. Depression. 6. Dyslipidemia. 7. Improving deconditioning. PLAN: 1. Continue current medications. 2. Nutritional support. 3. DVT and stress ulcer prophylaxis. 4. Decubitus precautions. 5. Incision care. 6. Discharge planning. 7. Arrange for home health with physical therapy. 8. Outpatient followup with primary care physician and specialist. 9. Anticipate discharging her tomorrow.
[2018-01-26] MEDS: Melatonin 3 MG TAB PO SCH (20:19)
[2018-01-26] MEDS: Senokot S 8.6-50 MG TAB PO PRN (20:20)
[2018-01-26] MEDS: traZODone HCl 50 MG TAB PO SCH (20:20)
[2018-01-26] MEDS: Stress 600 With Zinc 1 TAB PO SCH (20:20)
[2018-01-27] MEDS: HYDROcodone/Acetaminophen 10/325 mg Tablet PO PRN ×3 (02:23→10:26)
[2018-01-27] MEDS: Levothyroxine Sodium 25 MCG TAB PO SCH (06:35)
[2018-01-27 07:53] VITALS: BP 128/59; TEMP 96.6
[2018-01-27] MEDS: Naproxen 500 MG TAB PO SCH (08:18)
[2018-01-27] MEDS: Cyclobenzaprine 10 MG TAB PO SCH (08:18)
[2018-01-27] MEDS: Aspirin 81 mg Enteric Coated Tablet PO SCH (08:18)
[2018-01-27] MEDS: Folic Acid 1 MG TAB PO SCH (08:19)
[2018-01-27] MEDS: Fish Oil 1,000 MG CAP PO SCH (08:19)
[2018-01-27] MEDS: Escitalopram Oxalate 10 mg Tablet PO SCH (08:19)
[2018-01-27] MEDS: Multivitamin W/ Minerals 1 TAB PO SCH (08:19)
[2018-01-27] MEDS: Gabapentin 300 MG CAP PO SCH (08:19)
[2018-01-27] MEDS: Vitami E (Dl,Tocopheryl Acet) 400 UNITS CAP PO SCH (08:20)
[2018-01-27] MEDS: Pravastatin Sodium 20 MG TAB PO SCH (08:20)
[2018-01-27] MEDS: Ubidecarenone 50 MG CAP PO SCH (08:20)
== END 2018-01-27 12:05 | disposition home health service (06) | DRG 560 ==
LOC: NAV ACUTE 13:47
PROVIDERS: ADMIT Internal Medicine; ATTEND Internal Medicine
DX: Z47.1 Aftercare following joint replacement surgery (principal); D62 Acute posthemorrhagic anemia; E87.1 Hypo-osmolality and hyponatremia; Z96.652 Presence of left artificial knee joint; I10 Essential (primary) hypertension; K21.9 Gastro-esophageal reflux disease without esophagitis; M17.12 Unilateral primary osteoarthritis, left knee; E78.5 Hyperlipidemia, unspecified; M06.9 Rheumatoid arthritis, unspecified; G62.9 Polyneuropathy, unspecified; E03.9 Hypothyroidism, unspecified; F32.9 Major depressive disorder, single episode, unspecified; R05 Cough; E66.9 Obesity, unspecified; K59.09 Other constipation; Z68.39 Body mass index [BMI] 39.0-39.9, adult
CPT/HCPCS: 36415; 80048; 81003; 81015; 84439; 84481; 85025; 87086; A4216; G8978-GP-CL; G8979-GP-CJ

== ENCOUNTER 2018-02-15 09:54 | Outpatient (CLI) | payer MEDICARE ==
--- NOTE | 2018-02-15 10:39 | RAD ---
2 VIEWS CHEST: Date: 02/15/18 HISTORY: Cough. FINDINGS: PA and lateral views of the chest obtained. Comparison made to previous exam from 06/16/16. Two views of the chest demonstrate the lungs to be well aerated. No evidence of active intrathoracic disease seen. No evidence of effusions, pneumonia, or pneumothorax seen. IMPRESSION: Normal 2 views chest. POS: [facility]
== END 2018-02-15 09:55 | disposition home or self-care (01) ==
LOC: NAV RAD 09:54
PROVIDERS: ATTEND Family Medicine
DX: R05 Cough (principal)
CPT/HCPCS: 71046

== ENCOUNTER 2018-04-19 09:14 | Emergency (ER) | payer MEDICARE | END 2018-04-19 09:47 | disposition home or self-care (01) | LOC: NAV ERS 09:14 | DX: G89.18 Other acute postprocedural pain (principal); M25.562 Pain in left knee; F32.9 Major depressive disorder, single episode, unspecified; I10 Essential (primary) hypertension; Z79.891 Long term (current) use of opiate analgesic; Z79.899 Other long term (current) drug therapy; Z79.01 Long term (current) use of anticoagulants | CPT/HCPCS: 99283 ==

== ENCOUNTER 2018-04-27 07:33 | Emergency (ER) | payer MEDICARE ==
[2018-04-27] MEDS ORDERED: Ketorolac Tromethamine 30 MG/ML VIAL ONE (07:58)
== END 2018-04-27 08:04 | disposition home or self-care (01) ==
LOC: NAV ERS 07:33
DX: M25.462 Effusion, left knee (principal); I10 Essential (primary) hypertension; F32.9 Major depressive disorder, single episode, unspecified; M19.90 Unspecified osteoarthritis, unspecified site; Z79.01 Long term (current) use of anticoagulants; Z79.899 Other long term (current) drug therapy; Z79.891 Long term (current) use of opiate analgesic
CPT/HCPCS: 96372; J1885

== ENCOUNTER 2018-12-10 09:34 | Outpatient (CLI) | payer MEDICARE ==
--- NOTE | 2018-12-10 12:35 | RAD ---
XR Chest Pa Lat STANDARD History: [Pneumonia] Comparison: Radiograph 2018 Findings: Lungs are clear. No pneumothorax or effusion. Cardiac silhouette and mediastinal contours a re within normal limits. Impression: No acute intrathoracic abnormality.
== END 2018-12-10 09:35 | disposition home or self-care (01) ==
LOC: NAV RAD 09:34
PROVIDERS: ATTEND Family Medicine
DX: J18.9 Pneumonia, unspecified organism (principal)
CPT/HCPCS: 71046

== ENCOUNTER 2019-05-08 12:34 | Emergency (ER) | payer MEDICARE ==
--- NOTE | 2019-05-08 13:14 | RAD ---
XR Wrist 3 Lt View STANDARD: 05/08/2019 12:52 PM CLINICAL INDICATION: Fall with left wrist pain COMPARISON: None. FINDINGS: Plate and screw fixation of the distal radius is present. There is moderate-severe osteoarthritis. No acute fracture seen. IMPRESSION: 1. No acute osseous abnormality. 2. 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
== END 2019-05-08 13:42 | disposition home or self-care (01) ==
LOC: NAV ERS 12:34
DX: M25.432 Effusion, left wrist (principal); M79.642 Pain in left hand; E78.5 Hyperlipidemia, unspecified; E03.9 Hypothyroidism, unspecified; K21.9 Gastro-esophageal reflux disease without esophagitis; M06.9 Rheumatoid arthritis, unspecified; E78.00 Pure hypercholesterolemia, unspecified; F32.9 Major depressive disorder, single episode, unspecified; Z79.899 Other long term (current) drug therapy

== ENCOUNTER 2020-11-22 15:01 | Emergency (ER) | payer MEDICARE ==
[2020-11-22 15:49] LABS: #Basophils 0.1 thou/uL (0.0-0.2); #Eosinphils 0.2 thou/uL (0.0-0.7); #Lymphocytes 2.1 thou/uL (1.20-3.40); #Monocytes 0.7 thou/uL (0.11-0.59); #Neutrophils 4.4 thou/uL (1.40-6.50); %Basophils 0.7 % (0.0-1.0); %Eosinophils 2.9 % (0.0-10.0); %Lymphocytes 28.1 % (21.0-51.0); %Monocytes 9.9 % (0.0-10.0); %Neutrophils 58.3 % (42.0-75.0); Mean Corpuscular Hemoglobin 28.2 pg (27.0-31.0); Mean Corpuscular Volume 94.1 fL (78.0-98.0); Mean Platelet Volume 5.1 fL (7.4-10.4); Platelet Count 199 thou/uL (130-400); Red Blood Cell (RBC) Count 3.54 mill/uL (4.20-5.40); White Blood Cell (WBC) Count 7.5 thou/uL (4.8-10.8)
[2020-11-22 16:09] LABS: ALT (SGPT) 16 U/L (8-55); AST (SGOT) 22 U/L (5-34); Albumin 3.5 g/dL (3.4-4.8); Alkaline Phosphatase 64 U/L (40-110); Anion Gap 13 mmol/L (10-20); BUN (Urea Nitrogen) 10 mg/dL (9.8-20.1); Bilirubin, Total 0.3 mg/dL (0.2-1.2); Calc. Creatinine Clearance 0 mL/min (70-130); Calcium 8.5 mg/dL (7.8-10.44); Carbon Dioxide 29 mmol/L (23-31); Chloride 99 mmol/L (98-107); Globulin 3.1 g/dL (2.4-3.5); Glucose 128 mg/dL (83-110); Potassium 3.8 mmol/L (3.5-5.1); Protein, Total 6.6 g/dL (5.8-8.1); Sodium 137 mmol/L (136-145)
[2020-11-22 16:34] LABS: CKMB 2.4 ng/mL (0-6.6)
[2020-11-23 02:15] LABS: SARS-CoV-2 PCR by NAA Not Detected (NotDetected)
== END 2020-11-22 17:08 | disposition home or self-care (01) ==
LOC: NAV ERS 15:01
DX: J18.9 Pneumonia, unspecified organism (principal); Z20.822 Contact with and (suspected) exposure to COVID-19; E78.5 Hyperlipidemia, unspecified; E03.9 Hypothyroidism, unspecified; K21.9 Gastro-esophageal reflux disease without esophagitis; Z79.899 Other long term (current) drug therapy
CPT/HCPCS: 71045; 80053; 82553; 83605; 83880; 84484; 85025; 87635; 93005; U0003; U0005

== ENCOUNTER 2020-12-07 09:29 | Outpatient (CLI) | payer MEDICARE | END 2020-12-07 09:30 | disposition home or self-care (01) | LOC: NAV RAD 09:29 | PROVIDERS: ATTEND Family Medicine | DX: J18.9 Pneumonia, unspecified organism (principal) | CPT/HCPCS: 71046 ==

== ENCOUNTER 2022-01-05 09:33 | Emergency (ER) | payer MEDICARE ==
[2022-01-05 10:29] LABS: Bilirubin Negative (Negative); Blood, Urine Negative (Negative); Clarity SL HAZY (Clear); Glucose, Urine (Dipstick) Negative (Negative); Ketone, Urine Negative (Negative); Leukocyte Small (Negative); Nitrite Positive (Negative); Protein, Urine (Dipstick) Trace mg/dL (Neg-Trace); Urobilinogen 0.2 mg/dL (Less than 2); pH, Urine 5.5 (5.0-9.0)
[2022-01-05 10:30] LABS: Specific Gravity, Urine 1.036 (1.002-1.036)
[2022-01-05 10:32] LABS: #Basophils 0.1 thou/uL (0.0-0.2); #Eosinphils 0.2 thou/uL (0.0-0.7); #Lymphocytes 1.8 thou/uL (1.20-3.40); #Monocytes 0.8 thou/uL (0.11-0.59); #Neutrophils 5.5 thou/uL (1.40-6.50); %Basophils 1.3 % (0.0-1.0); %Eosinophils 2.9 % (0.0-10.0); %Lymphocytes 21.6 % (21.0-51.0); %Monocytes 9.4 % (0.0-10.0); %Neutrophils 64.9 % (42.0-75.0); Hemoglobin 12.5 g/dL (12.0-16.0); Mean Corpuscular HGB CONC 31.5 g/dL (32.0-36.0); Mean Corpuscular Hemoglobin 29.4 pg (27.0-31.0); Mean Corpuscular Volume 93.4 fL (78.0-98.0); Mean Platelet Volume 6.1 fL (7.4-10.4); Platelet Count 263 thou/uL (130-400); RBC Distribution Width 13.3 % (11.5-14.5); Red Blood Cell (RBC) Count 4.24 mill/uL (4.20-5.40); White Blood Cell (WBC) Count 8.5 thou/uL (4.8-10.8)
[2022-01-05 10:33] LABS: Bacteria/HPF 3+ HPF (None Seen); Squamous Epithelial 0-3 HPF (0-3); WBC/HPF Greater Than 50 HPF (0-3)
[2022-01-05 11:00] LABS: ALT (SGPT) 11 U/L (8-55); AST (SGOT) 15 U/L (5-34); Albumin 4.4 g/dL (3.4-4.8); Alkaline Phosphatase 62 U/L (40-110); Anion Gap 18 mmol/L (10-20); BUN (Urea Nitrogen) 20 mg/dL (9.8-20.1); Bilirubin, Total 0.4 mg/dL (0.2-1.2); Calc. Creatinine Clearance 0 mL/min (70-130); Calcium 9.7 mg/dL (7.8-10.44); Carbon Dioxide 25 mmol/L (23-31); Chloride 103 mmol/L (98-107); Globulin 2.6 g/dL (2.4-3.5); Glucose 91 mg/dL (83-110); Potassium 4.6 mmol/L (3.5-5.1); Sodium 141 mmol/L (136-145)
== END 2022-01-05 11:25 | disposition home or self-care (01) ==
LOC: NAV ERS 09:33
DX: N39.0 Urinary tract infection, site not specified (principal); E78.5 Hyperlipidemia, unspecified; E78.00 Pure hypercholesterolemia, unspecified; E03.9 Hypothyroidism, unspecified; K21.9 Gastro-esophageal reflux disease without esophagitis; Z79.899 Other long term (current) drug therapy; Z20.822 Contact with and (suspected) exposure to COVID-19
CPT/HCPCS: 71046; 80053; 81003; 81015; 83880; 84484; 85025; 87086; 87186; 87804; 93005; 94760

== ENCOUNTER 2022-01-15 11:05 | Inpatient (IN) | payer MEDICARE ==
[2022-01-16] MEDS ORDERED: Guaifenesin DM 100-10/5 ML UDCUP PO PRN (20:45)
[2022-01-16] MEDS ORDERED: Senokot S 8.6-50 MG TAB PO PRN (20:45)
[2022-01-16] MEDS ORDERED: Bisacodyl 5 MG TAB PO PRN (20:45)
[2022-01-16] MEDS ORDERED: Bisacodyl 10 MG SUPP PR PRN (20:45)
[2022-01-16] MEDS ORDERED: cloNIDine 0.1 MG TAB PO PRN (20:45)
[2022-01-16] MEDS ORDERED: Ondansetron PF 4 MG/2 ML Vial IVP PRN (20:45)
[2022-01-16] MEDS ORDERED: Promethazine HCl 25 MG SUPP PR PRN (20:45)
[2022-01-16] MEDS ORDERED: Acetaminophen 500 MG TAB PO PRN (20:45)
[2022-01-16] MEDS ORDERED: Benzonatate 100 MG CAP PO PRN (20:45)
[2022-01-16] MEDS ORDERED: Sodium Chloride 0.65% Nasal 44 ML BOT EA NARE PRN (20:45)
[2022-01-16] MEDS ORDERED: Artificial Tear Sol 15 ML BOT EA EYE PRN (20:45)
[2022-01-16] MEDS ORDERED: Cepastat Lozenges 1 LOZ PO PRN (20:45)
[2022-01-16] MEDS ORDERED: Ondansetron ODT 4 MG TAB PO PRN (20:45)
[2022-01-16] MEDS ORDERED: Calcium Carbonate 500 MG ChewTAB PO PRN (20:45)
[2022-01-16] MEDS ORDERED: Cefuroxime Axetil 250 MG TAB PO SCH (21:00)
[2022-01-16] MEDS: Gabapentin 300 MG CAP PO SCH (21:27)
[2022-01-16] MEDS: Melatonin 3 MG TAB PO SCH (21:28)
[2022-01-16] MEDS: traZODone HCl 50 MG TAB PO SCH (21:29)
[2022-01-16] MEDS: Amlodipine 5 MG TAB PO SCH (21:29)
[2022-01-16] MEDS: HYDROcodone/Acetaminophen 5/325 mg Tablet PO PRN (21:36)
[2022-01-17] MEDS: Levothyroxine Sodium 88 MCG TAB PO SCH (06:18)
[2022-01-17 07:06] LABS: #Basophils 0.1 thou/uL (0.0-0.2); #Eosinphils 0.3 thou/uL (0.0-0.7); #Lymphocytes 1.5 thou/uL (1.20-3.40); #Monocytes 0.6 thou/uL (0.11-0.59); #Neutrophils 3.4 thou/uL (1.40-6.50); %Eosinophils 4.6 % (0.0-10.0); %Lymphocytes 25.5 % (21.0-51.0); %Monocytes 9.8 % (0.0-10.0); %Neutrophils 59.1 % (42.0-75.0); Hemoglobin 8.8 g/dL (12.0-16.0); Mean Corpuscular HGB CONC 30.9 g/dL (32.0-36.0); Mean Corpuscular Hemoglobin 29.6 pg (27.0-31.0); Mean Corpuscular Volume 95.6 fL (78.0-98.0); Mean Platelet Volume 5.5 fL (7.4-10.4); Platelet Count 208 thou/uL (130-400); RBC Distribution Width 13.6 % (11.5-14.5); Red Blood Cell (RBC) Count 2.98 mill/uL (4.20-5.40); White Blood Cell (WBC) Count 5.8 thou/uL (4.8-10.8)
[2022-01-17 07:12] LABS: Anion Gap 15 mmol/L (10-20); BUN (Urea Nitrogen) 9 mg/dL (9.8-20.1); Calc. Creatinine Clearance 102 mL/min (70-130); Calcium 9.2 mg/dL (7.8-10.44); Carbon Dioxide 27 mmol/L (23-31); Chloride 103 mmol/L (98-107); Glucose 100 mg/dL (83-110); Sodium 141 mmol/L (136-145)
[2022-01-17] MEDS: Escitalopram Oxalate 10 mg Tablet PO SCH (08:08)
[2022-01-17] MEDS: Cefuroxime Axetil 250 MG TAB PO SCH ×2 (08:08→17:17)
[2022-01-17] MEDS: Simvastatin 10 MG TAB PO SCH (08:08)
[2022-01-17] MEDS: Gabapentin 300 MG CAP PO SCH ×3 (08:09→21:15)
[2022-01-17] MEDS: Cholecalciferol 1,000 UNITS (25 MCG) TAB PO SCH (08:09)
[2022-01-17] MEDS: Folic Acid 1 MG TAB PO SCH (08:10)
[2022-01-17] MEDS: BUPROPION HCL 100 MG PO SCH (08:11)
[2022-01-17] MEDS: HYDROcodone/Acetaminophen 10/325 mg Tablet PO PRN ×3 (08:19→21:19)
[2022-01-17] MEDS: HYDROcodone/Acetaminophen 5/325 mg Tablet PO PRN (17:17)
[2022-01-17] MEDS: traZODone HCl 50 MG TAB PO SCH (21:14)
[2022-01-17] MEDS: Amlodipine 5 MG TAB PO SCH (21:14)
[2022-01-17] MEDS: Melatonin 3 MG TAB PO SCH (21:14)
[2022-01-18] MEDS: Levothyroxine Sodium 88 MCG TAB PO SCH (05:22)
[2022-01-18] MEDS: HYDROcodone/Acetaminophen 10/325 mg Tablet PO PRN ×3 (07:03→17:56)
[2022-01-18] MEDS: Gabapentin 300 MG CAP PO SCH ×3 (08:58→20:45)
[2022-01-18] MEDS: Simvastatin 10 MG TAB PO SCH (08:58)
[2022-01-18] MEDS: Cholecalciferol 1,000 UNITS (25 MCG) TAB PO SCH (08:58)
[2022-01-18] MEDS: Folic Acid 1 MG TAB PO SCH (08:59)
[2022-01-18] MEDS: Escitalopram Oxalate 10 mg Tablet PO SCH (08:59)
[2022-01-18] MEDS: Cefuroxime Axetil 250 MG TAB PO SCH ×2 (08:59→17:53)
[2022-01-18] MEDS: BUPROPION HCL 100 MG PO SCH (09:00)
[2022-01-18] MEDS: Ibuprofen 200 MG TAB PO PRN (20:43)
[2022-01-18] MEDS: traZODone HCl 50 MG TAB PO SCH (20:44)
[2022-01-18] MEDS: Melatonin 3 MG TAB PO SCH (20:44)
[2022-01-18] MEDS: Amlodipine 10 MG TAB PO SCH (20:44)
[2022-01-19] MEDS: Levothyroxine Sodium 88 MCG TAB PO SCH (05:58)
[2022-01-19] MEDS: HYDROcodone/Acetaminophen 10/325 mg Tablet PO PRN ×3 (08:05→21:43)
[2022-01-19] MEDS: Escitalopram Oxalate 10 mg Tablet PO SCH (08:07)
[2022-01-19] MEDS: Cefuroxime Axetil 250 MG TAB PO SCH ×2 (08:07→17:02)
[2022-01-19] MEDS: Cholecalciferol 1,000 UNITS (25 MCG) TAB PO SCH (08:08)
[2022-01-19] MEDS: Gabapentin 300 MG CAP PO SCH ×3 (08:08→21:43)
[2022-01-19] MEDS: Folic Acid 1 MG TAB PO SCH (08:09)
[2022-01-19] MEDS: Simvastatin 10 MG TAB PO SCH (08:09)
[2022-01-19] MEDS: BUPROPION HCL 100 MG PO SCH (08:15)
[2022-01-19] MEDS: BUPROPION 100 MG PO SCH (08:17)
[2022-01-19] MEDS: Amlodipine 10 MG TAB PO SCH (21:41)
[2022-01-19] MEDS: Melatonin 3 MG TAB PO SCH (21:42)
[2022-01-19] MEDS: traZODone HCl 50 MG TAB PO SCH (21:42)
[2022-01-20] MEDS: Levothyroxine Sodium 88 MCG TAB PO SCH (05:34)
[2022-01-20 06:13] LABS: #Basophils 0.1 thou/uL (0.0-0.2); #Eosinphils 0.3 thou/uL (0.0-0.7); #Lymphocytes 1.9 thou/uL (1.20-3.40); #Monocytes 0.6 thou/uL (0.11-0.59); #Neutrophils 3.3 thou/uL (1.40-6.50); %Basophils 0.9 % (0.0-1.0); %Eosinophils 4.4 % (0.0-10.0); %Monocytes 10.1 % (0.0-10.0); %Neutrophils 53.6 % (42.0-75.0); Hemoglobin 8.9 g/dL (12.0-16.0); Mean Corpuscular HGB CONC 30.1 g/dL (32.0-36.0); Mean Corpuscular Hemoglobin 29.4 pg (27.0-31.0); Mean Corpuscular Volume 97.4 fL (78.0-98.0); Mean Platelet Volume 5.7 fL (7.4-10.4); Platelet Count 204 thou/uL (130-400); RBC Distribution Width 14.5 % (11.5-14.5); Red Blood Cell (RBC) Count 3.03 mill/uL (4.20-5.40); White Blood Cell (WBC) Count 6.1 thou/uL (4.8-10.8)
[2022-01-20 06:26] LABS: Anion Gap 15 mmol/L (10-20); BUN (Urea Nitrogen) 13 mg/dL (9.8-20.1); Calc. Creatinine Clearance 101 mL/min (70-130); Calcium 8.8 mg/dL (7.8-10.44); Carbon Dioxide 27 mmol/L (23-31); Chloride 104 mmol/L (98-107); Glucose 97 mg/dL (83-110); Potassium 3.9 mmol/L (3.5-5.1); Sodium 142 mmol/L (136-145)
[2022-01-20] MEDS: HYDROcodone/Acetaminophen 10/325 mg Tablet PO PRN ×2 (08:10→16:48)
[2022-01-20] MEDS: Escitalopram Oxalate 10 mg Tablet PO SCH (08:12)
[2022-01-20] MEDS: Folic Acid 1 MG TAB PO SCH (08:12)
[2022-01-20] MEDS: Gabapentin 300 MG CAP PO SCH ×3 (08:12→20:49)
[2022-01-20] MEDS: Cholecalciferol 1,000 UNITS (25 MCG) TAB PO SCH (08:13)
[2022-01-20] MEDS: Simvastatin 10 MG TAB PO SCH (08:13)
[2022-01-20] MEDS: Cefuroxime Axetil 250 MG TAB PO SCH ×2 (08:14→16:49)
[2022-01-20] MEDS: BUPROPION 100 MG PO SCH (08:15)
[2022-01-20] MEDS: Ibuprofen 200 MG TAB PO PRN ×2 (13:40→20:49)
[2022-01-20] MEDS: Melatonin 3 MG TAB PO SCH (20:49)
[2022-01-20] MEDS: traZODone HCl 50 MG TAB PO SCH (20:50)
[2022-01-20] MEDS: Amlodipine 10 MG TAB PO SCH (20:50)
[2022-01-21] MEDS: Levothyroxine Sodium 88 MCG TAB PO SCH (05:39)
[2022-01-21] MEDS: HYDROcodone/Acetaminophen 5/325 mg Tablet PO PRN ×2 (05:39→20:25)
[2022-01-21] MEDS: Gabapentin 300 MG CAP PO SCH ×3 (08:11→20:25)
[2022-01-21] MEDS: Folic Acid 1 MG TAB PO SCH (08:11)
[2022-01-21] MEDS: Cefuroxime Axetil 250 MG TAB PO SCH ×2 (08:11→16:39)
[2022-01-21] MEDS: Simvastatin 10 MG TAB PO SCH (08:12)
[2022-01-21] MEDS: Cholecalciferol 1,000 UNITS (25 MCG) TAB PO SCH (08:13)
[2022-01-21] MEDS: Escitalopram Oxalate 10 mg Tablet PO SCH (08:13)
[2022-01-21] MEDS: BUPROPION 100 MG PO SCH ×2 (08:14→08:16)
[2022-01-21] MEDS: HYDROcodone/Acetaminophen 10/325 mg Tablet PO PRN (12:03)
[2022-01-21] MEDS: Ibuprofen 200 MG TAB PO PRN ×2 (14:01→20:30)
[2022-01-21] MEDS: Melatonin 3 MG TAB PO SCH (20:24)
[2022-01-21] MEDS: Amlodipine 10 MG TAB PO SCH (20:26)
[2022-01-21] MEDS: traZODone HCl 50 MG TAB PO SCH (20:29)
[2022-01-22] MEDS: Levothyroxine Sodium 88 MCG TAB PO SCH (06:28)
[2022-01-22] MEDS: HYDROcodone/Acetaminophen 5/325 mg Tablet PO PRN (06:32)
[2022-01-22] MEDS: Cholecalciferol 1,000 UNITS (25 MCG) TAB PO SCH (09:09)
[2022-01-22] MEDS: Cefuroxime Axetil 250 MG TAB PO SCH ×2 (09:10→16:27)
[2022-01-22] MEDS: Simvastatin 10 MG TAB PO SCH (09:10)
[2022-01-22] MEDS: Folic Acid 1 MG TAB PO SCH (09:10)
[2022-01-22] MEDS: Escitalopram Oxalate 10 mg Tablet PO SCH (09:10)
[2022-01-22] MEDS: Gabapentin 300 MG CAP PO SCH ×3 (09:10→20:57)
[2022-01-22] MEDS: BUPROPION 100 MG PO SCH (09:12)
[2022-01-22] MEDS: Ibuprofen 200 MG TAB PO PRN ×2 (09:15→16:28)
[2022-01-22] MEDS: Furosemide 20 MG TAB PO PRN (12:11)
[2022-01-22] MEDS: HYDROcodone/Acetaminophen 10/325 mg Tablet PO PRN ×2 (12:12→20:57)
[2022-01-22 13:53] VITALS: BMI 35.3
[2022-01-22] MEDS: Melatonin 3 MG TAB PO SCH (20:57)
[2022-01-22] MEDS: Amlodipine 10 MG TAB PO SCH (20:58)
[2022-01-22] MEDS: traZODone HCl 50 MG TAB PO SCH (20:58)
[2022-01-23] MEDS: Levothyroxine Sodium 88 MCG TAB PO SCH (05:36)
[2022-01-23] MEDS: HYDROcodone/Acetaminophen 10/325 mg Tablet PO PRN (05:36)
[2022-01-23 06:23] LABS: #Basophils 0.1 thou/uL (0.0-0.2); #Eosinphils 0.2 thou/uL (0.0-0.7); #Lymphocytes 1.3 thou/uL (1.20-3.40); #Monocytes 0.6 thou/uL (0.11-0.59); #Neutrophils 4.4 thou/uL (1.40-6.50); %Basophils 1.1 % (0.0-1.0); %Eosinophils 3.6 % (0.0-10.0); %Lymphocytes 19.9 % (21.0-51.0); %Monocytes 8.9 % (0.0-10.0); %Neutrophils 66.5 % (42.0-75.0); Hemoglobin 9.1 g/dL (12.0-16.0); Mean Corpuscular Hemoglobin 29.4 pg (27.0-31.0); Mean Platelet Volume 5.9 fL (7.4-10.4); Platelet Count 190 thou/uL (130-400); RBC Distribution Width 14.3 % (11.5-14.5); Red Blood Cell (RBC) Count 3.11 mill/uL (4.20-5.40); White Blood Cell (WBC) Count 6.5 thou/uL (4.8-10.8)
[2022-01-23 06:34] LABS: Anion Gap 14 mmol/L (10-20); BUN (Urea Nitrogen) 18 mg/dL (9.8-20.1); Calc. Creatinine Clearance 88 mL/min (70-130); Carbon Dioxide 28 mmol/L (23-31); Chloride 103 mmol/L (98-107); Glucose 100 mg/dL (83-110); Potassium 4.1 mmol/L (3.5-5.1); Sodium 141 mmol/L (136-145)
[2022-01-23] MEDS: Folic Acid 1 MG TAB PO SCH (08:19)
[2022-01-23] MEDS: Cefuroxime Axetil 250 MG TAB PO SCH ×2 (08:19→17:08)
[2022-01-23] MEDS: Cholecalciferol 1,000 UNITS (25 MCG) TAB PO SCH (08:19)
[2022-01-23] MEDS: Gabapentin 300 MG CAP PO SCH ×3 (08:20→20:38)
[2022-01-23] MEDS: Escitalopram Oxalate 10 mg Tablet PO SCH (08:20)
[2022-01-23] MEDS: Simvastatin 10 MG TAB PO SCH (08:21)
[2022-01-23] MEDS: BUPROPION 100 MG PO SCH (08:22)
[2022-01-23] MEDS: Furosemide 20 MG TAB PO PRN (08:25)
[2022-01-23] MEDS: Ibuprofen 200 MG TAB PO PRN ×2 (08:25→14:58)
[2022-01-23] MEDS: HYDROcodone/Acetaminophen 5/325 mg Tablet PO PRN ×2 (12:01→20:44)
[2022-01-23] MEDS: Melatonin 3 MG TAB PO SCH (20:37)
[2022-01-23] MEDS: Amlodipine 10 MG TAB PO SCH (20:37)
[2022-01-23] MEDS: traZODone HCl 50 MG TAB PO SCH (20:38)
[2022-01-24] MEDS: Levothyroxine Sodium 88 MCG TAB PO SCH (05:41)
[2022-01-24] MEDS: HYDROcodone/Acetaminophen 10/325 mg Tablet PO PRN (05:45)
[2022-01-24] MEDS: Simvastatin 10 MG TAB PO SCH (08:37)
[2022-01-24] MEDS: Cholecalciferol 1,000 UNITS (25 MCG) TAB PO SCH (08:37)
[2022-01-24] MEDS: Cefuroxime Axetil 250 MG TAB PO SCH (08:37)
[2022-01-24] MEDS: Folic Acid 1 MG TAB PO SCH (08:38)
[2022-01-24] MEDS: Escitalopram Oxalate 10 mg Tablet PO SCH (08:38)
[2022-01-24] MEDS: Gabapentin 300 MG CAP PO SCH (08:39)
[2022-01-24] MEDS: Ibuprofen 200 MG TAB PO PRN (08:44)
[2022-01-24] MEDS: Furosemide 20 MG TAB PO PRN (08:45)
[2022-01-24] MEDS: BUPROPION 100 MG PO SCH (08:52)
[2022-01-24] MEDS ORDERED: Ondansetron ODT 4 MG TAB SL PRN (12:15)
[2022-01-24] MEDS: HYDROcodone/Acetaminophen 5/325 mg Tablet PO PRN (12:35)
[2022-01-24 15:18] VITALS: BP 116/57; TEMP 98.2
== END 2022-01-24 13:20 | disposition home health service (06) | DRG 690 ==
LOC: NAV ACUTE 01-16 17:18
PROVIDERS: ADMIT Family Medicine; ATTEND Family Medicine
DX: N30.00 Acute cystitis without hematuria (principal); F33.1 Major depressive disorder, recurrent, moderate; R53.1 Weakness; Z20.822 Contact with and (suspected) exposure to COVID-19; K21.9 Gastro-esophageal reflux disease without esophagitis; N18.2 Chronic kidney disease, stage 2 (mild); E78.2 Mixed hyperlipidemia; I12.9 Hypertensive chronic kidney disease with stage 1 through stage 4 chronic kidney disease, or unspecified chronic kidney disease; E66.01 Morbid (severe) obesity due to excess calories; E03.9 Hypothyroidism, unspecified; Z96.652 Presence of left artificial knee joint; Z96.612 Presence of left artificial shoulder joint; D63.1 Anemia in chronic kidney disease; G47.00 Insomnia, unspecified; Z90.89 Acquired absence of other organs; Z90.710 Acquired absence of both cervix and uterus; Z90.49 Acquired absence of other specified parts of digestive tract; Z88.0 Allergy status to penicillin; Z79.899 Other long term (current) drug therapy; Z79.890 Hormone replacement therapy; Z82.49 Family history of ischemic heart disease and other diseases of the circulatory system; Z80.9 Family history of malignant neoplasm, unspecified; Z68.35 Body mass index [BMI] 35.0-35.9, adult
CPT/HCPCS: 36415; 80048; 85025; U0003; U0005

== ENCOUNTER 2022-01-31 09:43 | Emergency (ER) | payer MEDICARE ==
[2022-01-31] MEDS ORDERED: Aspirin Chewable 81 MG TAB ONE (10:31)
[2022-01-31 11:24] LABS: #Basophils 0.1 thou/uL (0.0-0.2); #Eosinphils 0.1 thou/uL (0.0-0.7); #Lymphocytes 1.2 thou/uL (1.20-3.40); #Monocytes 0.5 thou/uL (0.11-0.59); #Neutrophils 4.7 thou/uL (1.40-6.50); %Eosinophils 1.5 % (0.0-10.0); %Lymphocytes 18.2 % (21.0-51.0); %Monocytes 7.4 % (0.0-10.0); Hemoglobin 9.9 g/dL (12.0-16.0); Mean Corpuscular HGB CONC 29.6 g/dL (32.0-36.0); Mean Corpuscular Hemoglobin 29.2 pg (27.0-31.0); Mean Corpuscular Volume 98.6 fL (78.0-98.0); Mean Platelet Volume 6.7 fL (7.4-10.4); Platelet Count 203 thou/uL (130-400); RBC Distribution Width 14.5 % (11.5-14.5); White Blood Cell (WBC) Count 6.5 thou/uL (4.8-10.8)
[2022-01-31 11:27] LABS: Bilirubin Negative (Negative); Blood, Urine Negative (Negative); Clarity Clear (Clear); Glucose, Urine (Dipstick) Negative (Negative); Ketone, Urine Negative (Negative); Leukocyte Negative (Negative); Nitrite Negative (Negative); Protein, Urine (Dipstick) Negative (Neg-Trace); Urobilinogen 0.2 mg/dL (Less than 2); pH, Urine 7.5 (5.0-9.0)
[2022-01-31 11:45] LABS: ALT (SGPT) 12 U/L (8-55); AST (SGOT) 13 U/L (5-34); Alkaline Phosphatase 68 U/L (40-110); Anion Gap 15 mmol/L (10-20); BUN (Urea Nitrogen) 5 mg/dL (9.8-20.1); Bilirubin, Total 0.4 mg/dL (0.2-1.2); CK (CPK) 80 U/L (29-168); Calc. Creatinine Clearance 0 mL/min (70-130); Carbon Dioxide 30 mmol/L (23-31); Chloride 100 mmol/L (98-107); Estimated GFR 66; Globulin 2.9 g/dL (2.4-3.5); Glucose 103 mg/dL (83-110); Potassium 3.4 mmol/L (3.5-5.1); Protein, Total 6.9 g/dL (5.8-8.1); Sodium 142 mmol/L (136-145)
[2022-01-31 12:23] LABS: SARS-CoV-2 NAA Rapid Test Not Detected (NotDetected)
== END 2022-01-31 12:55 | disposition home or self-care (01) ==
LOC: NAV ERS 09:43
DX: R06.02 Shortness of breath (principal); I45.89 Other specified conduction disorders; I11.0 Hypertensive heart disease with heart failure; I50.9 Heart failure, unspecified; E78.5 Hyperlipidemia, unspecified; E78.00 Pure hypercholesterolemia, unspecified; E03.9 Hypothyroidism, unspecified; K21.9 Gastro-esophageal reflux disease without esophagitis; G62.9 Polyneuropathy, unspecified; Z20.822 Contact with and (suspected) exposure to COVID-19; Z79.899 Other long term (current) drug therapy
CPT/HCPCS: 71045; 80053; 81003; 82550; 83880; 84484; 85025; 87804 ×2; 93005; 94760; 99285; U0002

== ENCOUNTER 2022-03-11 11:30 | Outpatient (CLI) | payer MEDICARE | END 2022-03-11 11:31 | disposition home or self-care (01) | LOC: NAV RAD 11:30 | PROVIDERS: ATTEND Family Medicine | DX: M54.2 Cervicalgia (principal); R05.2 Subacute cough; M47.812 Spondylosis without myelopathy or radiculopathy, cervical region | CPT/HCPCS: 71046; 72040 ==

== ENCOUNTER 2022-03-28 08:21 | Outpatient (CLI) | payer MEDICARE ==
[2022-03-28] MEDS ORDERED: Iopamidol 370 76% 100 ML VIAL ONE (09:00)
== END 2022-03-28 08:22 | disposition home or self-care (01) ==
LOC: NAV CT 08:21
PROVIDERS: ATTEND Student in an Organized Health Care Education/Training Program
DX: Z01.818 Encounter for other preprocedural examination (principal); J31.2 Chronic pharyngitis; I77.9 Disorder of arteries and arterioles, unspecified; R13.10 Dysphagia, unspecified
CPT/HCPCS: 36415; 70491; 82565; Q9967

== ENCOUNTER 2022-11-05 06:28 | Emergency (ER) | payer MEDICARE ==
[2022-11-05 07:00] LABS: #Basophils 0.1 thou/uL (0.0-0.2); #Eosinphils 0.3 thou/uL (0.0-0.7); #Lymphocytes 1.5 thou/uL (1.20-3.40); #Monocytes 0.6 thou/uL (0.11-0.59); #Neutrophils 4.8 thou/uL (1.40-6.50); %Basophils 0.8 % (0.0-1.0); %Eosinophils 3.6 % (0.0-10.0); %Lymphocytes 20.5 % (21.0-51.0); %Neutrophils 67.1 % (42.0-75.0); Hemoglobin 12.4 g/dL (12.0-16.0); Mean Corpuscular Hemoglobin 29.4 pg (27.0-31.0); Mean Corpuscular Volume 91.9 fl (78.0-98.0); Mean Platelet Volume 5.1 fL (7.4-10.4); Platelet Count 276 10x3/uL (130-400); RBC Distribution Width 12.8 % (11.5-14.5); Red Blood Cell (RBC) Count 4.24 mill/uL (4.20-5.40); White Blood Cell (WBC) Count 7.2 10x3/uL (4.8-10.8)
[2022-11-05 07:21] LABS: ALT (SGPT) 13 U/L (8-55); AST (SGOT) 16 U/L (5-34); Albumin 4.2 g/dL (3.4-4.8); Alkaline Phosphatase 64 U/L (40-110); Anion Gap 16 mmol/L (10-20); BUN (Urea Nitrogen) 12 mg/dL (9.8-20.1); Bilirubin, Total 0.3 mg/dL (0.2-1.2); Calc. Creatinine Clearance 0 mL/min (70-130); Calcium 9.7 mg/dL (7.8-10.44); Carbon Dioxide 27 mmol/L (23-31); Chloride 100 mmol/L (98-107); Estimated GFR 71; Globulin 3.7 g/dL (2.4-3.5); Glucose 135 mg/dL (83-110); Lipase 24 U/L (8-78); Potassium 3.9 mmol/L (3.5-5.1); Protein, Total 7.9 g/dL (5.8-8.1); Sodium 139 mmol/L (136-145)
[2022-11-05] MEDS ORDERED: Aspirin Chewable 81 MG TAB ONE (08:38)
[2022-11-05] MEDS ORDERED: Nitroglycerin 2% Ointment 1 INCH/1 GM Packet ONE (08:38)
[2022-11-05] MEDS ORDERED: Iopamidol 370 76% 100 ML VIAL ONE (09:00)
== END 2022-11-05 10:05 | disposition home or self-care (01) ==
LOC: NAV ERS 06:28
DX: R07.89 Other chest pain (principal); E78.00 Pure hypercholesterolemia, unspecified; E03.9 Hypothyroidism, unspecified; K21.9 Gastro-esophageal reflux disease without esophagitis
CPT/HCPCS: 71275; 74174; 80053; 83690; 84484; 85025; 93005; Q9967

== ENCOUNTER 2023-03-10 17:22 | Emergency (ER) | payer MEDICARE ==
[2023-03-10] MEDS ORDERED: HYDROcodone/Acetaminophen 10/325 mg Tablet ONE (18:36)
== END 2023-03-10 18:48 | disposition home or self-care (01) ==
LOC: NAV ERS 17:22
DX: G89.29 Other chronic pain (principal); M54.2 Cervicalgia; K21.9 Gastro-esophageal reflux disease without esophagitis; E78.2 Mixed hyperlipidemia; Z87.891 Personal history of nicotine dependence; Z79.899 Other long term (current) drug therapy
CPT/HCPCS: 99282

== ENCOUNTER 2023-03-11 17:50 | Emergency (ER) | payer MEDICARE ==
[2023-03-11] MEDS ORDERED: HYDROcodone/Acetaminophen 10/325 mg Tablet ONE (19:06)
== END 2023-03-11 19:00 | disposition home or self-care (01) ==
LOC: NAV ERS 17:50
DX: G89.29 Other chronic pain (principal); M54.2 Cervicalgia; K21.9 Gastro-esophageal reflux disease without esophagitis; E78.2 Mixed hyperlipidemia; Z87.891 Personal history of nicotine dependence; Z79.899 Other long term (current) drug therapy
CPT/HCPCS: 99283

== ENCOUNTER 2023-03-26 07:12 | Outpatient (CLI) | payer MEDICARE ==
[2023-03-26 08:26] LABS: Potassium 4.2 mmol/L (3.5-5.1); Sodium 139 mmol/L (136-145)
[2023-03-26 08:27] LABS: ALT (SGPT) 13 U/L (8-55); AST (SGOT) 16 U/L (5-34); Alkaline Phosphatase 69 U/L (40-110); BUN (Urea Nitrogen) 14 mg/dL (9.8-20.1); Bilirubin, Total 0.5 mg/dL (0.2-1.2); Calc. Creatinine Clearance 0 mL/min (70-130); Calcium 9.9 mg/dL (7.6-10.4); Carbon Dioxide 27 mmol/L (23-31); Chloride 99 mmol/L (98-107); Cholesterol 139 mg/dL (< 200 Desired); Estimated GFR 46; Globulin 3.7 g/dL (2.4-3.5); Glucose 92 mg/dL (83-110); HDL Cholesterol 42 mg/dL (>60 Neg Risk); Protein, Total 7.7 g/dL (5.8-8.1); Triglycerides 144 mg/dL (Less than 150)
[2023-03-26 08:31] LABS: Anion Gap 13 mmol/L (10-20)
[2023-03-26 08:32] LABS: LDL Cholesterol, Calculated 68 mg/dL
[2023-03-26 08:35] LABS: Cardiac Risk 3.3 (Less than 4.5)
[2023-03-26 08:45] LABS: #Basophils 0.1 thou/uL (0.0-0.2); #Eosinphils 0.3 thou/uL (0.0-0.7); #Lymphocytes 1.8 thou/uL (1.20-3.40); #Monocytes 0.7 thou/uL (0.11-0.59); #Neutrophils 4.2 thou/uL (1.40-6.50); %Basophils 1.2 % (0.0-1.0); %Eosinophils 3.6 % (0.0-10.0); %Lymphocytes 25.2 % (21.0-51.0); %Monocytes 9.6 % (0.0-10.0); %Neutrophils 60.4 % (42.0-75.0); Hematocrit 35.6 % (36.0-47.0); Hemoglobin 11.3 g/dL (12.0-16.0); Manual Diff?? NO; Mean Corpuscular HGB CONC 31.6 g/dL (32.0-36.0); Mean Corpuscular Hemoglobin 28.9 pg (27.0-31.0); Mean Corpuscular Volume 91.2 fl (78.0-98.0); Mean Platelet Volume 5.1 fL (7.4-10.4); Platelet Count 227 10x3/uL (130-400); RBC Distribution Width 12.9 % (11.5-14.5)
== END 2023-03-26 07:13 | disposition home or self-care (01) ==
LOC: NAV LAB 07:12
PROVIDERS: ATTEND Family Medicine
DX: Z00.00 Encounter for general adult medical examination without abnormal findings (principal); Z13.29 Encounter for screening for other suspected endocrine disorder
CPT/HCPCS: 36415; 80053; 80061; 84443; 85025

== ENCOUNTER 2023-05-29 09:29 | Outpatient (CLI) | payer MEDICARE | END 2023-05-29 09:30 | disposition home or self-care (01) | LOC: NAV RAD 09:29 | PROVIDERS: ATTEND Family Medicine | DX: M25.551 Pain in right hip (principal); M25.552 Pain in left hip; M16.0 Bilateral primary osteoarthritis of hip ==

== ENCOUNTER 2024-01-19 08:32 | Outpatient (CLI) | payer MEDICARE | END 2024-01-19 08:33 | disposition home or self-care (01) | LOC: NAV RAD 08:32 | PROVIDERS: ATTEND Surgery | DX: M48.02 Spinal stenosis, cervical region (principal); M43.12 Spondylolisthesis, cervical region; M50.31 Other cervical disc degeneration, high cervical region; Z98.1 Arthrodesis status | CPT/HCPCS: 72040 ==

== ENCOUNTER 2024-04-15 16:53 | Emergency (ER) | payer MEDICARE, OTHER ==
[~2024-04-15 16:53] MED LIST: Iopamidol 370 76% 100 ML VIAL ONE
[2024-04-15 17:56] LABS: #Basophils 0.1 thou/uL (0.0-0.2); #Eosinphils 0.4 thou/uL (0.0-0.7); #Lymphocytes 2.1 thou/uL (1.20-3.40); #Neutrophils 8.3 thou/uL (1.40-6.50); %Basophils 0.8 % (0.0-1.0); %Eosinophils 3.3 % (0.0-10.0); %Monocytes 8.1 % (0.0-10.0); %Neutrophils 69.9 % (42.0-75.0); Hematocrit 33.9 % (36.0-47.0); Hemoglobin 10.6 g/dL (12.0-16.0); Mean Corpuscular HGB CONC 31.2 g/dL (32.0-36.0); Mean Corpuscular Hemoglobin 28.6 pg (27.0-31.0); Mean Corpuscular Volume 91.6 fl (78.0-98.0); Mean Platelet Volume 5.8 fL (7.4-10.4); Platelet Count 193 10x3/uL (130-400); RBC Distribution Width 13.4 % (11.5-14.5); White Blood Cell (WBC) Count 11.9 10x3/uL (4.8-10.8)
[2024-04-15] MEDS ORDERED: Sodium Chloride 0.9% 250 ML 500 ML ONE (17:57)
[2024-04-15 18:07] LABS: ALT (SGPT) 13 U/L (8-55); AST (SGOT) 24 U/L (5-34); Albumin 3.7 g/dL (3.4-4.8); Alkaline Phosphatase 58 U/L (40-110); Anion Gap 18 mmol/L (10-20); BUN (Urea Nitrogen) 22 mg/dL (9.8-20.1); Bilirubin, Total 0.6 mg/dL (0.2-1.2); Calc. Creatinine Clearance 0 mL/min (70-130); Calcium 9.5 mg/dL (7.8-10.44); Carbon Dioxide 24 mmol/L (23-31); Chloride 94 mmol/L (98-107); Estimated GFR 20; Globulin 3.3 g/dL (2.4-3.5); Glucose 98 mg/dL (83-110); Lipase 16 U/L (8-78); Potassium 4.9 mmol/L (3.5-5.1); Sodium 131 mmol/L (136-145)
[2024-04-15 18:13] LABS: Troponin I 0.023 ng/mL (< 0.028)
[2024-04-15] MEDS ORDERED: Sodium Chloride 0.9% 250 ML 250 ML ONE (18:13)
[2024-04-15] MEDS ORDERED: Sodium Chloride 0.9% 1,000 ML ONE (19:26)
[2024-04-15] MEDS ORDERED: HYDROcodone/Acetaminophen 5/325 mg Tablet ONE (19:41)
[2024-04-15] MEDS ORDERED: Aspirin Chewable 81 MG TAB ONE (20:14)
[2024-04-15 20:46] LABS: Bilirubin Negative (Negative); Blood, Urine Small (Negative); Clarity Cloudy (Clear); Glucose, Urine (Dipstick) Negative (Negative); Ketone, Urine Negative (Negative); Leukocyte Moderate (Negative); Nitrite Positive (Negative); Protein, Urine (Dipstick) Trace mg/dL (Neg-Trace); Urobilinogen 0.2 mg/dL (Less than 2); pH, Urine 5.5 (5.0-9.0)
[2024-04-15 21:01] LABS: Bacteria/HPF 1+ HPF (None Seen); CAUTI Indications for Culture Fever or rigors; RBC/HPF 0-3 HPF (0-3); Squamous Epithelial 0-3 HPF (0-3); Urine Culture Reflex Yes Yes; WBC/HPF Greater than 50 HPF (0-3)
== END 2024-04-15 20:42 | disposition short-term general hospital (02) ==
LOC: NAV ERS 16:53
DX: I95.9 Hypotension, unspecified (principal); D72.829 Elevated white blood cell count, unspecified; E86.0 Dehydration; N18.9 Chronic kidney disease, unspecified; I50.9 Heart failure, unspecified; D63.1 Anemia in chronic kidney disease; Z87.891 Personal history of nicotine dependence
CPT/HCPCS: 36415; 71045; 71275; 74174; 80053; 81001; 83605; 83690; 83880; 84484; 85025; 85379; 87040; 87077; 87086; 87186; 93005; 96360; 96361; J7030; J7050; Q9967

== ENCOUNTER 2024-06-23 12:03 | Emergency (ER) | payer MEDICARE, SELFPAY ==
[2024-06-23] MEDS ORDERED: Ibuprofen 200 MG TAB ONE (12:39)
[2024-06-23 12:40] LABS: #Lymphocytes 0.5 thou/uL (1.20-3.40); #Monocytes 0.6 thou/uL (0.11-0.59); %Basophils 0.3 % (0.0-1.0); %Eosinophils 0.1 % (0.0-10.0); %Lymphocytes 6.3 % (21.0-51.0); %Monocytes 7.2 % (0.0-10.0); %Neutrophils 86.1 % (42.0-75.0); Hematocrit 39.4 % (36.0-47.0); Hemoglobin 12.8 g/dL (12.0-16.0); Mean Corpuscular HGB CONC 32.4 g/dL (32.0-36.0); Mean Corpuscular Hemoglobin 29.5 pg (27.0-31.0); Mean Corpuscular Volume 90.9 fl (78.0-98.0); Mean Platelet Volume 5.3 fL (7.4-10.4); Platelet Count 228 10x3/uL (130-400); RBC Distribution Width 12.2 % (11.5-14.5); Red Blood Cell (RBC) Count 4.33 mill/uL (4.20-5.40); White Blood Cell (WBC) Count 8.1 10x3/uL (4.8-10.8)
[2024-06-23 12:55] LABS: ALT (SGPT) 12 U/L (8-55); AST (SGOT) 15 U/L (5-34); Albumin 3.7 g/dL (3.4-4.8); Alkaline Phosphatase 65 U/L (40-110); Anion Gap 16 mmol/L (10-20); BUN (Urea Nitrogen) 8 mg/dL (9.8-20.1); Bilirubin, Total 0.5 mg/dL (0.2-1.2); Calc. Creatinine Clearance 0 mL/min (70-130); Calcium 9.8 mg/dL (7.8-10.44); Carbon Dioxide 22 mmol/L (23-31); Chloride 100 mmol/L (98-107); Estimated GFR 55; Globulin 4.3 g/dL (2.4-3.5); Glucose 136 mg/dL (83-110); Potassium 3.5 mmol/L (3.5-5.1); Sodium 134 mmol/L (136-145)
== END 2024-06-23 13:24 | disposition home or self-care (01) ==
LOC: NAV ERS 12:03
DX: J06.9 Acute upper respiratory infection, unspecified (principal); E78.00 Pure hypercholesterolemia, unspecified; Z55.6 Problems related to health literacy; Z79.899 Other long term (current) drug therapy; Z87.891 Personal history of nicotine dependence
CPT/HCPCS: 71046; 80053; 85025; 87428

== ENCOUNTER 2025-07-28 11:04 | Outpatient (CLI) | payer OTHER | END 2025-07-28 11:05 | disposition home or self-care (01) | LOC: NAV RAD 11:04 | PROVIDERS: ATTEND Family Medicine | DX: M25.512 Pain in left shoulder (principal); Z98.890 Other specified postprocedural states; Z96.612 Presence of left artificial shoulder joint ==